=== PATIENT | female | born 1955 | race Hispanic/Latino ===

== ENCOUNTER 2017-06-25 15:02 | Inpatient (IN) | payer BC ==
[2017-06-25 15:12] VITALS: BMI 24.5
[2017-06-25] MEDS ORDERED: Sodium Chloride 0.9% 1,000 ML IV STA (15:39)
--- NOTE | 2017-06-25 15:45 | ED PDOC ---
Arrival/HPI - General Chief Complaint: Weakness/Neurological Deficit Time Seen by Provider: 06/25/17 15:36 - History of Present Illness Narrative History of Present Illness (Text): 61 y/o F c PMHx CVAs, migraine headaches, chronic back pain/herniated discs p/w general weakness, headache, nausea, loss of appetite since yesterday. This is last time well. She also reports L leg swelling and itchy skin with open wounds due to scratching x 1 month. Headache is bilateral, radiating down back of head , pounding, similar to previous migraine headaches but also similar to previous CVAs. Patient had regular scheduled appointment with PMD Marla today and was found to be hypertensive and generally unwell and instructed to come to ED for further evaluation. Denies fever, dyspnea, cough, dysuria. Past Medical History - Cardiac Hx Hypertension: Yes - Pulmonary Hx Tuberculosis: No - Neurological HX Cerebrovascular Accident: Yes Hx Seizures: No - HEENT Hx HEENT Disorder: No - Renal Hx Renal Disorder: No - Endocrine/Metabolic Hx Endocrine Disorders: No - Hematological/Oncological Hx Blood Disorders: No - Integumentary Hx Dermatological Disorder: No Hx Psoriasis: Yes (Psoriatic arthiritis ) - Musculoskeletal/Rheumatological Hx Arthritis: Yes Hx Herniated Disk: Yes - Gastrointestinal Hx Gastrointestinal Disorders: No - Genitourinary/Gynecological Hx Genitourinary Disorders: No Hx Sexually Transmitted Diseases: No - Psychiatric Hx Anxiety: Yes Hx Substance Use: No - Surgical History Hx Hysterectomy: Yes (2/2 fibroids) - Anesthesia Hx Anesthesia: Yes Hx Anesthesia Reactions: No - Suicidal Assessment Feels Threatened In Home Enviroment: No Family/Social History Family/Social History: No Known Family HX Smoking Status: Former Smoker Hx Alcohol Use: No Hx Substance Use: No Hx Substance Use Treatment: Yes (opiate dependence) Allergies/Home Meds Allergies/Adverse Reactions: Allergies Sulfa (Sulfonamide Antibiotics) Allergy (Verified 06/25/17 15:13) ANAPHYLAXIS Home Medications: Home Meds Medication Instructions Recorded Confirmed Acetaminophen/Butalbital/Caf 1 tab PO Q4 06/25/17 06/25/17 [Fioricet] Acyclovir 5% [Zovirax] 1 appl TP Q3 06/25/17 06/25/17 Albuterol Sulfate [Albuterol Hfa] 2 puff IH Q4 06/25/17 06/25/17 Aspirin [Aspirin Chewable] 81 mg PO DAILY 06/25/17 06/25/17 Carisoprodol [Soma] 350 mg PO TID 06/25/17 06/25/17 HYDROmorphone [Dilaudid] 8 mg PO Q6 06/25/17 06/25/17 Mometasone 0.1% [Elocon 0.1%] 1 appl TP DAILY 06/25/17 06/25/17 Morphine Sulfate [Ms Contin] 15 mg PO Q12 06/25/17 06/25/17 Mupirocin 2% Cream [Bactroban 1 applic EXT TID 06/25/17 06/25/17 Cream] Propranolol HCl 10 mg PO BID 06/25/17 06/25/17 Topiramate [Topamax] 50 mg PO BID 06/25/17 06/25/17 Umeclidinium Brm/Vilanterol Tr 1 each IH DAILY 06/25/17 06/25/17 [Anoro Ellipta 62.5-25 Mcg INH] Verapamil [Verapamil HCl] 40 mg PO TID 06/25/17 06/25/17 diaZEpam [Valium] 5 mg PO BID 06/25/17 06/25/17 Review of Systems - Physician Review All systems were reviewed & negative as marked: Yes - Review of Systems Constitutional: absent: Fevers Respiratory: absent: SOB Physical Exam - Physical Exam Narrative Physical Exam (Text): Constitutional: No acute distress. Head: Normocephalic. Atraumatic. Eyes: PERRL. EOMI. ENT: Moist mucous membranes. Neck: Supple. No nuchal rigidity. Cardiovascular: Regular rate. Chest: No tenderness. Respiratory: Clear to auscultation bilaterally. GI: Soft. Nontender. Nondistended. Back: No CVA tenderness. Musculoskeletal: L lower leg swelling with excoriations to anterior barrientos without discharge. Skin: As above. Neurologic: Alert, no focal deficit. Oriented x 3. No facial droop. CN II to XII intact. Moves all extremities. Sensation to light touch intact bilaterally. Vital Signs Temp Pulse Resp BP Pulse Ox 06/25/17 15:13 98.4 F 60 18 188/96 H 99 06/25/17 15:11 98.4 F 60 18 188/96 H 99 Medical Decision Making ED Course and Treatment: Home dose dilaudid PO for pain. Zofran for nausea. IVF. Check Head CT due to history of CVAs and questionable history of aneurysm. Check labs, UA, doppler to rule out DVT. EKG Sinus rhythm, 65 bpm, no ST elevations or T wave inversions. CXR no acute disease. MPRESSION: No evidence of acute intracranial hemorrhage. Small foci of hypodensity/ encephalomalacia noted at the right parasagittal frontal lobe and right occipital lobe may represent old infarction. CT shows old infarction, no previous for comparison. Will admit for further evaluation of neurological findings. - Lab Interpretations Lab Results: 06/25/17 16:13 06/25/17 16:13 Lab Results 06/25/17 16:13: Sodium 130 L, Potassium 5.2 H, Chloride 95 L, Carbon Dioxide 29 , Anion Gap 11, BUN 6 L, Creatinine 0.8, Est GFR ( Amer) > 60, Est GFR ( Non-Af Amer) > 60, Random Glucose 111 H, Calcium 9.7, Total Bilirubin 0.5, AST 29, ALT 35, Alkaline Phosphatase 115, Total Protein 6.9, Albumin 4.3, Globulin 2.6, Albumin/Globulin Ratio 1.7, Lipase 93 06/25/17 16:13: PT 11.4, INR 1.04, APTT 30.9 06/25/17 16:13: WBC 7.7, RBC 3.61, Hgb 11.4 L, Hct 33.3 L, MCV 92.2, MCH 31.6, MCHC 34.2, RDW 12.8, Plt Count 260, MPV 9.4, Gran % 67.8, Lymph % (Auto) 20.9 L , Cannon % (Auto) 7.0 H, Eos % (Auto) 4.0, Baso % (Auto) 0.3, Gran # 5.25, Lymph # 1.6, Cannon # 0.5, Eos # 0.3, Baso # 0.02 - RAD Interpretation Radiology Orders: 06/25/17 15:38 CHEST PORTABLE [RAD] Stat 06/25/17 15:39 HEAD W/O CONTRAST [CT] Stat DUPLEX LOWER EXTRM VEIN BILAT [US] Stat - Medication Orders Current Medication Orders: Discontinued Medications Aspirin (Aspirin) 325 mg PO STAT STA Stop: 06/25/17 18:58 Hydromorphone HCl (Dilaudid) 8 mg PO ONCE STA Stop: 06/25/17 15:53 Last Admin: 06/25/17 16:12 Dose: 8 mg MAR Pain Assessment Document 06/25/17 16:12 HI (Rec: 06/25/17 16:13 HI [id number]) Pain Reassessment Is this a pain reassessment? No Sleep Is patient sleeping during reassessment? No Presence of Pain Presence of Pain Yes Sodium Chloride (Sodium Chloride 0.9%) 1,000 mls @ 999 mls/hr IV .Q1H1M STA Stop: 06/25/17 16:39 Last Admin: 06/25/17 16:13 Dose: 999 mls/hr eMAR Start Stop Document 06/25/17 16:13 HI (Rec: 06/25/17 16:13 HI [id number]) Intravenous Solution Start Date 06/25/17 Start Time 16:13 Ondansetron HCl (Zofran Inj) 8 mg IVP STAT STA Stop: 06/25/17 15:40 Last Admin: 06/25/17 16:13 Dose: 8 mg IVP Administration Document 06/25/17 16:13 HI (Rec: 06/25/17 16:13 [id number]) Charges for Administration # of IVP Administrations 1 NIHSS Scale (Hepler) Time Performed: 15:52 - How Severe is the Stoke Baseline Level of Consciousness: 0=Alert LOC to Questions: 0=Both comments correct LOC to commands: 0=Obeys both correctly Best Gaze: 0=Normal Visual: 0=No visual loss Facial: 0=Normal Motor Arm - Left: 0=No drift Motor Arm - Right: 0=No drift Motor Leg - Left: 0=No drift Motor Leg - Right: 0=No drift Limb Ataxia: 0=Absent Sensory: 0=Normal Best Language: 0=No aphasia Dysarthia: 0=Normal articulation Extinction & Inattention (Neglect): 0=Normal, no object Score: 0 Risk Level: No Stroke Risk Disposition/Present on Arrival - Present on Arrival Any Indicators Present on Arrival: No History of DVT/PE: No History of Uncontrolled Diabetes: No Urinary Catheter: No History of Decub. Ulcer: No History Surgical Site Infection Following: None - Disposition Have Diagnosis and Disposition been Completed?: Yes Diagnosis: Cerebral infarction Disposition: HOSPITALIZED Disposition Time: 17:53 Patient Plan: Observation, Telemetry Condition: FAIR Referrals: Sp Gutiérrez MD [Primary Care Provider] - Follow up with primary Forms: [place] (Micronesian)
--- NOTE | 2017-06-25 16:00 | RAD ---
HISTORY: weakness COMPARISON: No prior. FINDINGS: LUNGS: No active pulmonary disease. PLEURA: No significant pleural effusion identified, no pneumothorax apparent. CARDIOVASCULAR: Normal. OSSEOUS STRUCTURES: No significant abnormalities. VISUALIZED UPPER ABDOMEN: Normal. OTHER FINDINGS: None. IMPRESSION: No active disease.
[2017-06-25 16:21] LABS: BASO # 0.02 K/mm3 (0.0-2.0); BASO % 0.3 % (0.0-3.0); EOS # 0.3 (0.0-0.7); GRAN # 5.25 (1.4-6.5); GRAN % 67.8 % (50.0-68.0); HEMATOCRIT 33.3 % (36.0-48.0); LYMPH # 1.6 (1.2-3.4); LYMPH % 20.9 % (22.0-35.0); MEAN CELL VOLUME 92.2 fl (80.0-105.0); MEAN CORPUSCULAR HEMOGLOBIN 31.6 pg (25.0-35.0); MEAN CORPUSCULAR HGB CONC 34.2 g/dl (31.0-37.0); MEAN PLATELET VOLUME 9.4 fl (7.0-11.0); MONO # 0.5 (0.1-0.6); RED CELL DISTRIBUTION WIDTH 12.8 % (11.5-14.5); WHITE BLOOD COUNT 7.7 10^3/ul (4.5-11.0)
[2017-06-25 16:36] LABS: ALB/GLOB RATIO 1.7 (1.1-1.8); ALKALINE PHOSPHATASE 115 U/L (38-126); ALT/SGPT 35 U/L (7-56); AST/SGOT 29 U/L (14-36); BILIRUBIN,TOTAL 0.5 mg/dL (0.2-1.3); BLOOD UREA NITROGEN 6 mg/dL (7-21); CALCIUM 9.7 mg/dL (8.4-10.5); CARBON DIOXIDE 29 mmol/L (21-33); CHLORIDE 95 mmol/L (98-107); GFR AFRICAN-AMERICAN > 60; GLUCOSE,RANDOM 111 mg/dL (70-110); LIPASE 93 U/L (23-300); POTASSIUM 5.2 mmol/L (3.6-5.0); SODIUM 130 mmol/L (132-148); TOTAL PROTEIN 6.9 g/dL (5.8-8.3)
[2017-06-25 16:39] LABS: INR 1.04 (0.93-1.08)
[2017-06-25 16:40] LABS: PARTIAL THROMBOPLASTIN TIME 30.9 Seconds (25.1-36.5)
--- NOTE | 2017-06-25 17:55 | CT ---
PROCEDURE: CT HEAD WITHOUT CONTRAST. HISTORY: general weakness, headache, nausea COMPARISON: None available. TECHNIQUE: Axial computed tomography images were obtained through the head/brain without intravenous contrast. Radiation dose: Total exam DLP = 1505.17 mGy-cm. This CT exam was performed using one or more of the following dose reduction techniques: Automated exposure control, adjustment of the mA and/or kV according to patient size, and/or use of iterative reconstruction technique. FINDINGS: HEMORRHAGE: No intracranial hemorrhage. BRAIN: There are foci of hypodensity/ encephalomalacia noted at the right superior frontal parasagittal region image 48 and right occipital lobe image 32 may represent old infarction. No atrophy or chronic microvascular ischemic changes. VENTRICLES: Unremarkable. No hydrocephalus. CALVARIUM: Unremarkable. PARANASAL SINUSES: [id number] ethmoid sinuses mucosal thickening. MASTOID AIR CELLS: Unremarkable as visualized. No inflammatory changes. OTHER FINDINGS: None. IMPRESSION: No evidence of acute intracranial hemorrhage. Small foci of hypodensity/ encephalomalacia noted at the right parasagittal frontal lobe and right occipital lobe may represent old infarction.
--- NOTE | 2017-06-25 18:37 | US ---
HISTORY: Leg pain and swelling. Evaluate for DVT PHYSICIAN(S): Alexis Lane MD. TECHNIQUE: Duplex sonography and color-flow Doppler with graded compression were used to evaluate the deep venous systems of both lower extremities. FINDINGS: The visualized deep venous systems of both lower extremities are sonographically normal and compressible. Normal wave forms and augmentation are seen. There is no sonographic evidence for deep venous thrombosis in the visualized segments of both lower extremities. IMPRESSION: No sonographic evidence for deep venous thrombosis in the visualized segments of both lower extremities.
[2017-06-25 19:18] LABS: PH,URINE 6.5 (4.7-8.0); URINE BILIRUBIN NEGATIVE (NEGATIVE); URINE BLOOD NEGATIVE (NEGATIVE); URINE GLUCOSE (UA) NEGATIVE (NEGATIVE); URINE KETONE NEGATIVE (NEGATIVE); URINE LEUKOCYTE ESTERASE NEGATIVE Leu/uL (NEGATIVE); URINE PROTEIN NEGATIVE mg/dL (<30 mg/dL); URINE UROBILINOGEN 0.2 E.U./dL (<1 E.U./dL)
[2017-06-25 19:21] LABS: URINE APPEARANCE CLEAR (CLEAR); URINE COLOR YELLOW (YELLOW)
[2017-06-25] MEDS ORDERED: Albuterol-Ipratrop 3 mg / 0.5 (3 ml) UD IH PRN (20:57)
[2017-06-25] MEDS: Morphine 15 mg SR Tab PO SCH (21:36)
--- NOTE | 2017-06-25 21:50 | CP.PCM.HP ---
History of Present Illness - History of Present Illness History of Present Illness: Ms. Elizondo is a 61 yo F with PMH CVA x7 requiring several months of rehab, HTN, migraines, psoriatic arthritis, chronic back pain w/ cervical and lumbar stenoses, COPD, anxiety and tobacco use who presented with LE (L>R) swelling, redness, and generalized itchiness x1 week, a headache and generalized weakness and pain. the patient states that she has psioratic arthritis and the generalized pain is similar to her pain. The headaches are similar to her migraines, and she also complains of photophobia. the itching is familiar to her as she has psoriasis and it usually flares around winter time. She went to visit Dr. Gutiérrez in office this morning and was found to be hypertensive (SBP 180's) and was told to come in to ED for workup. She denies chest pain, shortness of breath, wheezing, changes in vision/hearing, ringing in ears, abdominal pain, n/v/d/constipation, fevers/chills. 12-pt ROS was reviewed and is otherwise unremarkable. In ED, ASA, Dilaudid and Zofran were given. NS 1L bolus was given. BP improved. PMD: Dr. Gutiérrez Pulm: pt cannot recall name; managed COPD PMH: as above PSH: hysterectomy 2/2 fibroids Meds: Ellipta, Elocon, Soma, Zovirax, Valium, Albuterol, ASA, Bactroban, Fioricet, Propranolol, Topamax, Verapamil, Dilaudid, Morphine Allergies: Sulfa Present on Admission - Present on Admission Any Indicators Present on Admission: No History of DVT/PE: No History of Uncontrolled Diabetes: No Urinary Catheter: No Decubitus Ulcer Present: No Review of Systems - Review of Systems All systems: reviewed and no additional remarkable complaints except (as per HPI ) Past Patient History - Past Medical History & Family History Past Medical History?: Yes - Past Social History Smoking Status: Former Smoker Alcohol: None Drugs: Denies - CARDIAC Hx Hypertension: Yes - PULMONARY Hx Chronic Obstructive Pulmonary Disease (COPD): Yes Hx Tuberculosis: No - NEUROLOGICAL HX Cerebrovascular Accident: Yes Hx Migraine: Yes Hx Seizures: No - HEENT Hx HEENT Problems: No - RENAL Hx Chronic Kidney Disease: No - ENDOCRINE/METABOLIC Hx Endocrine Disorders: No - HEMATOLOGICAL/ONCOLOGICAL Hx Blood Disorders: No - INTEGUMENTARY Hx Dermatological Problems: No Hx Psoriasis: Yes (Psoriatic arthiritis ) - MUSCULOSKELETAL/RHEUMATOLOGICAL Hx Arthritis: Yes Hx Back Pain: Yes Hx Herniated Disk: Yes Hx Spinal Stenosis: Yes (cervical and lumbar) - GASTROINTESTINAL Hx Gastrointestinal Disorders: No - GENITOURINARY/GYNECOLOGICAL Hx Genitourinary Disorders: No Hx Sexually Transmitted Disorders: No - PSYCHIATRIC Hx Anxiety: Yes Hx Substance Use: No - SURGICAL HISTORY Hx Hysterectomy: Yes (2/2 fibroids) - ANESTHESIA Hx Anesthesia: Yes Hx Anesthesia Reactions: No Meds Allergies/Adverse Reactions: Allergies Allergy/AdvReac Type Severity Reaction Status Date / Time Sulfa (Sulfonamide Allergy ANAPHYLAXIS Verified 06/25/17 21:50 Antibiotics) Physical Exam - Constitutional Appears: Well, Non-toxic, No Acute Distress - Head Exam Head Exam: ATRAUMATIC, NORMAL INSPECTION, NORMOCEPHALIC - Eye Exam Eye Exam: EOMI, Normal appearance, Nystagmus, PERRL Pupil Exam: NORMAL ACCOMODATION - ENT Exam ENT Exam: Mucous Membranes Moist, Normal Exam - Neck Exam Neck exam: Positive for: Normal Inspection - Respiratory Exam Respiratory Exam: Clear to Auscultation Bilateral, NORMAL BREATHING PATTERN. absent: Rales, Rhonchi, Wheezes - Cardiovascular Exam Cardiovascular Exam: RRR, +S1, +S2, Systolic Murmur - GI/Abdominal Exam GI & Abdominal Exam: Normal Bowel Sounds, Soft. absent: Distended, Tenderness - Extremities Exam Extremities exam: Positive for: calf tenderness, pedal pulses present. Negative for: full ROM (limited due to pain), joint swelling, pedal edema Additional comments: multiple localized abrasions likely 2/2 scratching - Back Exam Back exam: NORMAL INSPECTION - Neurological Exam Neurological exam: Alert, CN II-XII Intact, Oriented x3 - Expanded Neurological Exam Expanded Patient oriented to: person, place, time Speech: Fluid Speech Cranial nerves: EOM's Intact: Normal, Facial Palsey w/Forehead Movement: Normal , Facial Palsey w/o Forehead Movement: Normal, Facial Sensation: Normal, Nystagmus: Abnormal Left, Abnormal Right, Tongue Deviation: Normal Cerebellar Function: Finger to Nose: Normal Upper motor neuron: Babinski Sign: Normal Sensory exam: Lower Extremity Light Touch: Normal, Upper Extremity Light Touch: Normal Neuro motor strength exam: Left Upper Extremity: 5, Right Upper Extremity: 5, Left Lower Extremity: 5, Right Lower Extremity: 5 - Psychiatric Exam Psychiatric exam: Normal Affect, Normal Mood - Skin Skin Exam: Abrasion (L anterior barrientos), Normal Color, Warm Results - Vital Signs Recent Vital Signs: Last Vital Signs Temp 98.4 F 06/25/17 15:13 Pulse 72 06/25/17 19:50 Resp 14 06/25/17 19:50 BP 149/91 H 06/25/17 19:50 Pulse Ox 96 06/25/17 19:50 - Labs Result Diagrams: 06/25/17 16:13 06/25/17 16:13 Assessment & Plan - Assessment and Plan (Free Text) Assessment: 61 yo F with PMH CVA x7 requiring several months of rehab, HTN, migraines, psoriatic arthritis, chronic back pain w/ cervical and lumbar stenoses, COPD, anxiety and tobacco use who presented with HTN, LE (L>R) itchiness x1 week, a headache and generalized weakness and pain likely 2/2 psoriatic arthritis flare up vs TIA Plan: Generalized weakness r/o TIA vs psoriatic arthritis flare up - CT Head showed no acute intracranial hemorrhage. small foci of hypodensity likely old infarcts - neurochecks - PT/OT eval - Neuro consulted, recs appreciated - cont ASA - cont Carisoprodol LE swelling and redness likely 2/2 psoriasis flare up vs DVT, unlikely cellulitis - LE doppler negative for DVT - heparin for DVT ppx - Benadryl 25mg IV PRN - Dilaudid 8mg (home dose) Q6H PRN, Morphine ER 15mg Q12H - Bactroban cream HTN - cont Propranolol, Topamax and Verapamil (home meds) - Vital Signs Q4H Hx migraines - Fioricet Hx COPD - Duoneb PRN Pepcid/Heparin HHD Patient was seen and examined, and discussed in detail with attending, Dr. Marla Yeung PGY1 - Date & Time Date: 06/25/17 Time: 20:15
[2017-06-25] MEDS ORDERED: Influenza Vaccine 60 mcg/0.5 mL SYR (4YR UP) IM ONE (23:07)
[2017-06-25] MEDS ORDERED: Pneumococcal 23-Valent Vaccine IM ONE (23:07)
[2017-06-26 06:26] LABS: HEMATOCRIT 31.7 % (36.0-48.0); MEAN CELL VOLUME 92.4 fl (80.0-105.0); MEAN CORPUSCULAR HEMOGLOBIN 31.5 pg (25.0-35.0); MEAN CORPUSCULAR HGB CONC 34.1 g/dl (31.0-37.0); MEAN PLATELET VOLUME 9.6 fl (7.0-11.0); RED CELL DISTRIBUTION WIDTH 13.2 % (11.5-14.5); WHITE BLOOD COUNT 4.5 10^3/ul (4.5-11.0)
[2017-06-26 06:55] LABS: ALB/GLOB RATIO 1.4 (1.1-1.8); ALKALINE PHOSPHATASE 102 U/L (38-126); ALT/SGPT 26 U/L (7-56); AST/SGOT 26 U/L (14-36); BILIRUBIN,TOTAL 0.4 mg/dL (0.2-1.3); BLOOD UREA NITROGEN 5 mg/dL (7-21); CALCIUM 9.1 mg/dL (8.4-10.5); CARBON DIOXIDE 26 mmol/L (21-33); CHLORIDE 105 mmol/L (98-107); GFR AFRICAN-AMERICAN > 60; GLUCOSE,RANDOM 98 mg/dL (70-110); POTASSIUM 3.8 mmol/L (3.6-5.0); SODIUM 135 mmol/L (132-148); TOTAL PROTEIN 5.9 g/dL (5.8-8.3)
--- NOTE | 2017-06-26 08:07 | CARD ---
APPROVED REPORT EKG Measurement Heart [id number] <Conclusion> Sinus rhythm with 1st degree AV block Possible Left atrial enlargement LVH by voltage
[2017-06-26] MEDS: DiphenhydrAMINE 50 mg/ml Inj IVP PRN ×3 (09:43→23:45)
[2017-06-26] MEDS: Morphine 15 mg SR Tab PO SCH ×2 (09:46→23:16)
[2017-06-26] MEDS: CARISOPRODOL 350 MG PO SCH ×3 (10:07→17:27)
[2017-06-26 12:23] LABS: CHOLESTEROL 176 mg/dL (130-200)
[2017-06-26] MEDS: cefTRIAXone 1 gm 1 GM/100 ML BAG IVPB SCH (12:41)
--- NOTE | 2017-06-26 13:14 | CP.PCM.CON ---
<Sandy Dupont - Last Filed: 06/26/17 22:47> History of Present Illness - History of Present Illness History of Present Illness: PGY-2 Neurology consult note for Dr. Davis's service 61 yo Female with PMH of CVA x7, HTN, migraines, psoriatic arthritis, chronic back pain with cervical and lumbar stenoses, COPD, anxiety and former tobacco use who presented with left lower extremity weakness, headache and generalized weakness. The patient states that that headache is bilateral, radiating down to her neck. She states it similar to her previous migraines. She also reports increasing weakness especially in her lower left leg, per patient yesterday she was able to walk with out difficulty but in the evening she began having trouble standing. She states over the past fe weeks her blood pressure has been poorly controlled. Yesterday she went to her primary care physician's office and was advised to come to the hospital after finding her BP to he elevated. She reports chronic back pain. She denies chest pain, shortness of breath, wheezing, changes in vision/hearing, ringing in ears, abdominal pain, changes in vision, n/v/d/constipation, fevers/chills. PMH: CVA x7, HTN, migraines, psoriatic arthritis, chronic back pain with cervical and lumbar stenoses, COPD, anxiety PSH: hysterectomy 2/2 fibroids social history: former smoker, quit many years ago, denies alcohol use and illicit drug use home Meds: Ellipta, Elocon, Soma, Zovirax, Valium, Albuterol, ASA, Bactroban, Fioricet, Propranolol, Topamax, Verapamil, Dilaudid, Morphine Allergies: Sulfa Review of Systems - Review of Systems All systems: reviewed and no additional remarkable complaints except (as stated in HPI) Past Patient History - Past Medical History & Family History Past Medical History?: Yes - Past Social History Smoking Status: Former Smoker - CARDIAC Hx Cardiac Disorders: Yes Hx Hypertension: Yes - PULMONARY Hx Respiratory Disorders: Yes (SMOKED CIGARETTES QUIT) Hx Chronic Obstructive Pulmonary Disease (COPD): Yes Hx Tuberculosis: No - NEUROLOGICAL Hx Neurological Disorder: Yes HX Cerebrovascular Accident: Yes Hx Migraine: Yes Hx Seizures: No - HEENT Hx HEENT Problems: No - RENAL Hx Chronic Kidney Disease: No - ENDOCRINE/METABOLIC Hx Endocrine Disorders: No - HEMATOLOGICAL/ONCOLOGICAL Hx Blood Disorders: No - INTEGUMENTARY Hx Dermatological Problems: No Hx Psoriasis: Yes (Psoriatic arthiritis ) - MUSCULOSKELETAL/RHEUMATOLOGICAL Hx Arthritis: Yes Hx Back Pain: Yes Hx Falls: Yes Hx Herniated Disk: Yes Hx Spinal Stenosis: Yes (cervical and lumbar) - GASTROINTESTINAL Hx Gastrointestinal Disorders: No - GENITOURINARY/GYNECOLOGICAL Hx Genitourinary Disorders: No Hx Sexually Transmitted Disorders: No - PSYCHIATRIC Hx Anxiety: Yes Hx Substance Use: Yes (OPIATE DEPENDANCE) - SURGICAL HISTORY Hx Hysterectomy: Yes (2/2 fibroids) - ANESTHESIA Hx Anesthesia: Yes Hx Anesthesia Reactions: No Meds Allergies/Adverse Reactions: Allergies Allergy/AdvReac Type Severity Reaction Status Date / Time Sulfa (Sulfonamide Allergy ANAPHYLAXIS Verified 06/25/17 21:50 Antibiotics) - Medications Medications: Current Medications Acetaminophen/Butalbital/Caffeine (Fioricet) 1 tab PO Q4 PRN PRN Reason: Headache Albuterol/Ipratropium (Duoneb 3 Mg/0.5 Mg (3 Ml) Ud) 3 ml IH Q2H PRN PRN Reason: Shortness of Breath Aspirin (Aspirin Chewable) 81 mg PO DAILY [facility] Last Admin: 06/26/17 09:44 Dose: 81 mg Diazepam (Valium) 5 mg PO BID ANDREW PRN Reason: Protocol Last Admin: 06/26/17 09:47 Dose: 5 mg Diphenhydramine HCl (Benadryl) 25 mg IVP Q4H PRN PRN Reason: Allergy symptoms Last Admin: 06/26/17 09:43 Dose: 25 mg Docusate Sodium (Colace) 100 mg PO BID [facility] Last Admin: 06/26/17 09:47 Dose: 100 mg Famotidine (Pepcid) 40 mg PO HS [facility] Last Admin: 06/25/17 22:07 Dose: 40 mg Heparin Sodium (Porcine) (Heparin) 5,000 units SC Q12 ANDREW PRN Reason: Protocol Last Admin: 06/26/17 11:08 Dose: 5,000 units Hydromorphone HCl (Dilaudid) 8 mg PO Q6 PRN PRN Reason: Pain, severe (8-10) Last Admin: 06/26/17 05:45 Dose: 8 mg Ceftriaxone Sodium (Rocephin 1 Gram Ivpb) 1 gm in 100 mls @ 100 mls/hr IVPB DAILY [facility] PRN Reason: Protocol Last Admin: 06/26/17 12:41 Dose: 100 mls/hr Morphine Sulfate (Morphine Extended Release Tab) 15 mg PO Q12 [facility] Last Admin: 06/26/17 09:46 Dose: 15 mg Mupirocin (Bactroban Ointment) 0 gm TOP TID [facility] Last Admin: 06/26/17 10:39 Dose: 1 applic Carisoprodol [Soma] (350 Mg (Home Med)) 350 mg PO TID [facility] Last Admin: 06/26/17 10:07 Dose: Not Given Propranolol HCl (Inderal) 10 mg PO BID [facility] Last Admin: 06/26/17 09:45 Dose: 10 mg Topiramate (Topamax) 50 mg PO BID [facility] PRN Reason: Protocol Last Admin: 06/26/17 10:40 Dose: 50 mg Verapamil HCl (Calan Tab) 40 mg PO TID [facility] Last Admin: 06/26/17 09:44 Dose: 40 mg Physical Exam - Constitutional Appears: Well, No Acute Distress - Head Exam Head Exam: ATRAUMATIC, NORMAL INSPECTION, NORMOCEPHALIC - Eye Exam Eye Exam: EOMI, Normal appearance, PERRL - ENT Exam ENT Exam: Mucous Membranes Moist - Respiratory Exam Respiratory Exam: Clear to Auscultation Bilateral, NORMAL BREATHING PATTERN. absent: Rhonchi, Wheezes, Respiratory Distress, Stridor - Cardiovascular Exam Cardiovascular Exam: REGULAR RHYTHM, +S1, +S2. absent: Tachycardia, Systolic Murmur - GI/Abdominal Exam GI & Abdominal Exam: Normal Bowel Sounds, Soft. absent: Distended, Firm, Tenderness - Extremities Exam Extremities exam: Positive for: tenderness - Neurological Exam Neurological exam: Alert, CN II-XII Intact, Oriented x3 - Expanded Neurological Exam Expanded Patient oriented to: person, place, time Cranial nerves: EOM's Intact: Normal Cerebellar Function: Finger to Nose: Normal Neuro motor strength exam: Left Upper Extremity: 5, Right Upper Extremity: 5, Left Lower Extremity: 3, Right Lower Extremity: 5 - Skin Skin Exam: Dry Results - Vital Signs Recent Vital Signs: Last Vital Signs Temp 98.9 F 06/26/17 06:00 Pulse 73 06/26/17 10:00 Resp 20 06/26/17 06:00 BP 118/90 06/26/17 09:45 Pulse Ox 96 06/26/17 06:00 - Labs Result Diagrams: 06/26/17 06:00 06/26/17 06:00 Labs: Laboratory Results - last 24 hr 06/26/17 06/26/17 06/26/17 06:00 06:00 12:00 WBC 4.5 D RBC 3.43 L Hgb 10.8 L Hct 31.7 L MCV 92.4 MCH 31.5 MCHC 34.1 RDW 13.2 Plt Count 254 MPV 9.6 Sodium 135 Potassium 3.8 Chloride 105 Carbon Dioxide 26 Anion Gap 9 L BUN 5 L Creatinine 0.8 Est GFR ( Amer) > 60 Est GFR (Non-Af Amer) > 60 Random Glucose 98 Calcium 9.1 Total Bilirubin 0.4 AST 26 ALT 26 Alkaline Phosphatase 102 Total Protein 5.9 Albumin 3.5 Globulin 2.4 Albumin/Globulin Ratio 1.4 Triglycerides 86 Cholesterol 176 LDL Cholesterol Direct 108 HDL Cholesterol 57 Assessment & Plan - Assessment and Plan (Free Text) Assessment: 61 yo Female with PMH of CVA x7, HTN, migraines, psoriatic arthritis, chronic back pain with cervical and lumbar stenoses, COPD, anxiety and former tobacco use who presented with left lower extremity weakness, headache most likely due to HTN urgency. 1. HTN urgency causing diffuse headache and neurological deficiency 2. h/o CVA with left leg weakness 3. chronic back pain with cervical and lumbar stenosis 4. anxiety 5. COPD - CT head showed no acute intracranial hemorrhage. small foci of hypodensity likely old infarcts - MRI of the brain ordered - left sided weakness appears to be chronic, consistent with location of previous cva - control BP - PT/OT evaluation case reviewed and discussed with attending, Dr. Davis <Andrew Davis - Last Filed: 06/27/17 06:00> Meds - Medications Medications: Current Medications Acetaminophen/Butalbital/Caffeine (Fioricet) 1 tab PO Q4 PRN PRN Reason: Headache Last Admin: 06/26/17 14:18 Dose: 1 tab Albuterol/Ipratropium (Duoneb 3 Mg/0.5 Mg (3 Ml) Ud) 3 ml IH Q2H PRN PRN Reason: Shortness of Breath Aspirin (Aspirin Chewable) 81 mg PO DAILY [facility] Last Admin: 06/26/17 09:44 Dose: 81 mg Diazepam (Valium) 5 mg PO BID ANDREW PRN Reason: Protocol Last Admin: 06/26/17 18:09 Dose: 5 mg Diphenhydramine HCl (Benadryl) 25 mg IVP Q4H PRN PRN Reason: Allergy symptoms Last Admin: 06/26/17 23:45 Dose: 25 mg Docusate Sodium (Colace) 100 mg PO BID [facility] Last Admin: 06/26/17 18:09 Dose: 100 mg Famotidine (Pepcid) 40 mg PO HS [facility] Last Admin: 06/26/17 23:16 Dose: 40 mg Heparin Sodium (Porcine) (Heparin) 5,000 units SC Q12 [facility] PRN Reason: Protocol Last Admin: 06/26/17 23:15 Dose: 5,000 units Hydromorphone HCl (Dilaudid) 8 mg PO Q6 PRN PRN Reason: Pain, severe (8-10) Last Admin: 06/27/17 03:40 Dose: 8 mg Ceftriaxone Sodium (Rocephin 1 Gram Ivpb) 1 gm in 100 mls @ 100 mls/hr IVPB DAILY [facility] PRN Reason: Protocol Last Admin: 06/26/17 12:41 Dose: 100 mls/hr Morphine Sulfate (Morphine Extended Release Tab) 15 mg PO Q12 [facility] Last Admin: 06/26/17 23:16 Dose: 15 mg Mupirocin (Bactroban Ointment) 0 gm TOP TID [facility] Last Admin: 06/26/17 18:10 Dose: 1 applic Carisoprodol [Soma] (350 Mg (Home Med)) 350 mg PO TID [facility] Last Admin: 06/26/17 17:27 Dose: Not Given Propranolol HCl (Inderal) 10 mg PO BID [facility] Last Admin: 06/26/17 18:08 Dose: 10 mg Topiramate (Topamax) 50 mg PO BID [facility] PRN Reason: Protocol Last Admin: 06/26/17 18:08 Dose: 50 mg Verapamil HCl (Calan Tab) 40 mg PO TID [facility] Last Admin: 06/26/17 18:08 Dose: 40 mg Results - Vital Signs Recent Vital Signs: Last Vital Signs Temp 97.9 F 06/27/17 00:01 Pulse 72 06/27/17 02:00 Resp 21 06/26/17 18:00 BP 136/92 H 06/27/17 00:01 Pulse Ox 96 06/26/17 06:00 - Labs Result Diagrams: 06/26/17 06:00 06/26/17 06:00 Attending/Attestation - Attestation I have personally seen and examined this patient.: Yes I have fully participated in the care of the patient.: Yes I have reviewed all pertinent clinical information: Yes
--- NOTE | 2017-06-26 14:05 | CP.PCM.PN ---
Subjective - Date & Time of Evaluation Date of Evaluation: 06/26/17 Time of Evaluation: 09:00 - Subjective Subjective: Patient seen and evaluated at bedside. Patient sent over from PMD yesterday for elevated BP, headache, pruritus, and concerning neurological symptoms. Patient today reporting continued pruritus, headache, and generalized weakness. Patient denies chest pain, shortness of breath, abdominal pain, vomiting, fever, chills. Patient endorses poor appetite. Objective - Vital Signs/Intake and Output Vital Signs (last 24 hours): Temp Pulse Resp BP Pulse Ox 98.9 F 73 20 118/90 96 06/26/17 06:00 06/26/17 10:00 06/26/17 06:00 06/26/17 09:45 06/26/17 06:00 Intake and Output: 06/26/17 06/26/17 06:59 18:59 Intake Total 120 Output Total 1000 Balance -880 - Medications Medications: Current Medications Acetaminophen/Butalbital/Caffeine (Fioricet) 1 tab PO Q4 PRN PRN Reason: Headache Albuterol/Ipratropium (Duoneb 3 Mg/0.5 Mg (3 Ml) Ud) 3 ml IH Q2H PRN PRN Reason: Shortness of Breath Aspirin (Aspirin Chewable) 81 mg PO DAILY [facility] Last Admin: 06/26/17 09:44 Dose: 81 mg Diazepam (Valium) 5 mg PO BID ANDREW PRN Reason: Protocol Last Admin: 06/26/17 09:47 Dose: 5 mg Diphenhydramine HCl (Benadryl) 25 mg IVP Q4H PRN PRN Reason: Allergy symptoms Last Admin: 06/26/17 09:43 Dose: 25 mg Docusate Sodium (Colace) 100 mg PO BID [facility] Last Admin: 06/26/17 09:47 Dose: 100 mg Famotidine (Pepcid) 40 mg PO HS [facility] Last Admin: 06/25/17 22:07 Dose: 40 mg Heparin Sodium (Porcine) (Heparin) 5,000 units SC Q12 [facility]RE[facility] PRN Reason: Protocol Last Admin: 06/26/17 11:08 Dose: 5,000 units Hydromorphone HCl (Dilaudid) 8 mg PO Q6 PRN PRN Reason: Pain, severe (8-10) Last Admin: 06/26/17 05:45 Dose: 8 mg Ceftriaxone Sodium (Rocephin 1 Gram Ivpb) 1 gm in 100 mls @ 100 mls/hr IVPB DAILY [facility] PRN Reason: Protocol Last Admin: 06/26/17 12:41 Dose: 100 mls/hr Morphine Sulfate (Morphine Extended Release Tab) 15 mg PO Q12 [facility] Last Admin: 06/26/17 09:46 Dose: 15 mg Mupirocin (Bactroban Ointment) 0 gm TOP TID [facility] Last Admin: 06/26/17 10:39 Dose: 1 applic Carisoprodol [Soma] (350 Mg (Home Med)) 350 mg PO TID [facility] Last Admin: 06/26/17 10:07 Dose: Not Given Propranolol HCl (Inderal) 10 mg PO BID [facility] Last Admin: 06/26/17 09:45 Dose: 10 mg Topiramate (Topamax) 50 mg PO BID [facility] PRN Reason: Protocol Last Admin: 06/26/17 10:40 Dose: 50 mg Verapamil HCl (Calan Tab) 40 mg PO TID [facility] Last Admin: 06/26/17 09:44 Dose: 40 mg - Labs Labs: 06/26/17 06:00 06/26/17 06:00 PT 11.4 SECONDS (9.4-12.5) 06/25/17 16:13 INR 1.04 (0.93-1.08) 06/25/17 16:13 APTT 30.9 Seconds (25.1-36.5) 06/25/17 16:13 - Constitutional Appears: No Acute Distress - Head Exam Head Exam: ATRAUMATIC, NORMAL INSPECTION, NORMOCEPHALIC - Eye Exam Eye Exam: EOMI, PERRL - ENT Exam ENT Exam: Mucous Membranes Moist - Neck Exam Neck Exam: Full ROM - Respiratory Exam Respiratory Exam: Clear to Ausculation Bilateral, NORMAL BREATHING PATTERN. absent: Rales, Rhonchi, Wheezes - Cardiovascular Exam Cardiovascular Exam: REGULAR RHYTHM, +S1, +S2 - GI/Abdominal Exam GI & Abdominal Exam: Rigid, Soft, Normal Bowel Sounds. absent: Guarding, Tenderness, Mass - Extremities Exam Extremities Exam: Calf Tenderness. absent: Pedal Edema Additional comments: LLE showing nail scratching/rash lesions, no evidence of discharge or erythema surrounding rash - Neurological Exam Neurological Exam: Abnormal Gait (difficult with ambulation, poor coordination, uneasy on feet ), Alert, Awake, CN II-XII Intact, Oriented x3. absent: Normal Gait - Psychiatric Exam Psychiatric exam: Normal Affect, Normal Mood - Skin Skin Exam: Abrasion, Dry, Intact, Rash Assessment and Plan - Assessment and Plan (Free Text) Assessment: Patient is a 61 year old female with PMH of CVA x7 with extensive investigation and requiring several months of rehab, Migraines, HTN, psoriatic arthritis, chronic back pain with cervical and lumbar stenoses, COPD, anxiety and tobacco use who presented to [facility] from PMD for elevated B, LE pruritis x 1 week, headache and generalized weakness. Patient was admitted for generalized weakness 2/2 TIA vs. CVA vs. PRES Plan: 1. Generalized weakness, unsteady gait - Etiology: TIA vs. CVA vs. HTN urgency - CT Head on admission: No acute intracranial hemorrhage, small foci of hypodensity likely old infarcts - Neurology consulted, appreciate recs - Head MRI today f/u - Control of BP - PT/OT eval - Neurochecks Q4H - Continue ASA, carisoprodol 2. Lower extremity erythema/rash - Etiology: Psoriasis flare up vs. allergic reaction vs. cellulitis - LE doppler b/l negative for DVT - Benadryl 25mg IV PRN - Continue home pain management, Dilaudid 8mg Q6H PRN, Morphine ER 15mg BID - Bactroban cream - IV rocephin - Monitor clinical course 3. HTN - Stable here in hosital - Continue henri emeds, Propranolol, Topamax and Verapamil - Monitor 4. Hx of Migraines - Continue Fioricet DVT PPX: Heparin GI PPX: Pepcid Case and plan discussed with attending Dr. Gutiérrez
[2017-06-26] MEDS: Apap-Butalbital-Caffeine 325-50-40mg Tab PO PRN (14:18)
--- NOTE | 2017-06-26 18:31 | MRI ---
PROCEDURE: MRI BRAIN WITHOUT CONTRAST HISTORY: r/o stroke COMPARISON: None. TECHNIQUE: Multiplanar, multisequence MR images of the brain were obtained without intravenous contrast enhancement. FINDINGS: HEMORRHAGE: None DWI: No evidence of an acute or early subacute infarction. BRAIN PARENCHYMA: No mass effect or edema. Small focal encephalomalacia in the inferior right occipital lobe and in the high medial right and left parietal lobes, all likely the result of old infarcts. Mild periventricular white matter signal abnormality consistent with chronic microvascular ischemic change. VENTRICLES: Unremarkable. No hydrocephalus. CRANIUM: Unremarkable. ORBITS: Grossly unremarkable. PARANASAL SINUSES/MASTOIDS: Clear VASCULAR SYSTEM: Skull base flow voids intact. OTHER FINDINGS: None. IMPRESSION: No evidence of acute infarct. Small old right occipital and bilateral medial parietal infarcts, [employer]PRES[employer] distribution. No other significant abnormality.
--- NOTE | 2017-06-27 06:04 | CP.PCM.PCO ---
Physician Communication Note - Physician Communication Note Physician Communication Note: mribrain neg for acute infarcts. recommend pt/ot. sign off
[2017-06-27 06:12] LABS: HEMATOCRIT 32.2 % (36.0-48.0); MEAN CELL VOLUME 92.5 fl (80.0-105.0); MEAN CORPUSCULAR HEMOGLOBIN 31.3 pg (25.0-35.0); MEAN CORPUSCULAR HGB CONC 33.9 g/dl (31.0-37.0); MEAN PLATELET VOLUME 9.4 fl (7.0-11.0); RED CELL DISTRIBUTION WIDTH 13.1 % (11.5-14.5)
[2017-06-27] MEDS: Apap-Butalbital-Caffeine 325-50-40mg Tab PO PRN ×2 (06:47→22:26)
[2017-06-27 07:11] LABS: ALB/GLOB RATIO 1.4 (1.1-1.8); ALKALINE PHOSPHATASE 93 U/L (38-126); ALT/SGPT 31 U/L (7-56); AST/SGOT 22 U/L (14-36); BILIRUBIN,TOTAL 0.4 mg/dL (0.2-1.3); BLOOD UREA NITROGEN 6 mg/dL (7-21); CALCIUM 9.3 mg/dL (8.4-10.5); CARBON DIOXIDE 23 mmol/L (21-33); CHLORIDE 107 mmol/L (98-107); GFR AFRICAN-AMERICAN > 60; GLUCOSE,RANDOM 109 mg/dL (70-110); POTASSIUM 3.8 mmol/L (3.6-5.0); SODIUM 137 mmol/L (132-148); TOTAL PROTEIN 6.3 g/dL (5.8-8.3)
[2017-06-27] MEDS: cefTRIAXone 1 gm 1 GM/100 ML BAG IVPB SCH (10:14)
[2017-06-27] MEDS: Morphine 15 mg SR Tab PO SCH ×2 (10:19→22:18)
[2017-06-27] MEDS: CARISOPRODOL 350 MG PO SCH ×3 (10:21→17:13)
--- NOTE | 2017-06-27 11:23 | CP.PCM.PN ---
Subjective - Date & Time of Evaluation Date of Evaluation: 06/27/17 Time of Evaluation: 07:45 - Subjective Subjective: Patient seen and examined at bedside. No acute events reported overnight. Patient reports poor night sleep with challenge with pain associated with back and lower legs. patient reports continued itching sensation with mild improvement from onset. Patient reports work with PT was challenge. Patient denies worsening weakness, or new onset of symptoms regarding neuro deficits, denies chest pain, shortness of breath, abdominal pain, vomiting, diarrhea, constipation. Objective - Vital Signs/Intake and Output Vital Signs (last 24 hours): Temp Pulse Resp BP Pulse Ox 98.7 F 70 20 139/90 97 06/27/17 06:00 06/27/17 10:20 06/27/17 06:00 06/27/17 10:20 06/27/17 06:00 Intake and Output: 06/27/17 06/27/17 06:59 18:59 Intake Total 360 Output Total 1300 Balance -940 - Medications Medications: Current Medications Acetaminophen/Butalbital/Caffeine (Fioricet) 1 tab PO Q4 PRN PRN Reason: Headache Last Admin: 06/27/17 06:47 Dose: 1 tab Albuterol/Ipratropium (Duoneb 3 Mg/0.5 Mg (3 Ml) Ud) 3 ml IH Q2H PRN PRN Reason: Shortness of Breath Aspirin (Aspirin Chewable) 81 mg PO DAILY [facility] Last Admin: 06/27/17 10:18 Dose: 81 mg Diazepam (Valium) 5 mg PO BID [facility] PRN Reason: Protocol Last Admin: 06/27/17 10:20 Dose: 5 mg Diphenhydramine HCl (Benadryl) 25 mg IVP Q4H PRN PRN Reason: Allergy symptoms Last Admin: 06/26/17 23:45 Dose: 25 mg Docusate Sodium (Colace) 100 mg PO BID [facility] Last Admin: 06/27/17 10:18 Dose: 100 mg Famotidine (Pepcid) 40 mg PO HS [facility] Last Admin: 06/26/17 23:16 Dose: 40 mg Heparin Sodium (Porcine) (Heparin) 5,000 units SC Q12 [facility] PRN Reason: Protocol Last Admin: 06/27/17 10:18 Dose: 5,000 units Hydromorphone HCl (Dilaudid) 4 mg PO Q4 [facility] Ceftriaxone Sodium (Rocephin 1 Gram Ivpb) 1 gm in 100 mls @ 100 mls/hr IVPB DAILY [facility] PRN Reason: Protocol Last Admin: 06/27/17 10:14 Dose: 100 mls/hr Morphine Sulfate (Morphine Extended Release Tab) 15 mg PO Q12 [facility] Last Admin: 06/27/17 10:19 Dose: 15 mg Mupirocin (Bactroban Ointment) 0 gm TOP TID [facility] Last Admin: 06/27/17 10:21 Dose: Not Given Carisoprodol [Soma] (350 Mg (Home Med)) 350 mg PO TID [facility] Last Admin: 06/27/17 10:21 Dose: Not Given Propranolol HCl (Inderal) 10 mg PO BID [facility] Last Admin: 06/27/17 10:19 Dose: 10 mg Topiramate (Topamax) 50 mg PO BID [facility] PRN Reason: Protocol Last Admin: 06/27/17 10:20 Dose: 50 mg Verapamil HCl (Calan Tab) 40 mg PO TID [facility] Last Admin: 06/27/17 10:20 Dose: 40 mg - Labs Labs: 06/27/17 05:30 06/27/17 05:30 PT 11.4 SECONDS (9.4-12.5) 06/25/17 16:13 INR 1.04 (0.93-1.08) 06/25/17 16:13 APTT 30.9 Seconds (25.1-36.5) 06/25/17 16:13 - Head Exam Head Exam: ATRAUMATIC, NORMAL INSPECTION, NORMOCEPHALIC - Eye Exam Eye Exam: EOMI, PERRL - ENT Exam ENT Exam: Mucous Membranes Moist - Neck Exam Neck Exam: Full ROM - Respiratory Exam Respiratory Exam: Clear to Ausculation Bilateral, NORMAL BREATHING PATTERN. absent: Rales, Rhonchi, Wheezes - Cardiovascular Exam Cardiovascular Exam: REGULAR RHYTHM, +S1, +S2 - GI/Abdominal Exam GI & Abdominal Exam: Soft, Normal Bowel Sounds. absent: Guarding, Rigid, Tenderness, Mass - Extremities Exam Extremities Exam: absent: Calf Tenderness, Pedal Edema Additional comments: left lwer extremity with nail scratch/abrasions no evidence of purulence, drainage - Back Exam Back Exam: NORMAL INSPECTION - Neurological Exam Neurological Exam: Alert, Awake, Oriented x3 Neuro motor strength exam: Left Upper Extremity: 5, Right Upper Extremity: 5, Left Lower Extremity: 5, Right Lower Extremity: 5 Additional comments: gait with assistance showing shuffling gait improved from past 24hours - Psychiatric Exam Psychiatric exam: Depressed - Skin Skin Exam: Dry, Intact, Warm Assessment and Plan - Assessment and Plan (Free Text) Assessment: Patient is a 61 year old female with PMH of CVA x7 with extensive investigation and requiring several months of rehab, Migraines, HTN, psoriatic arthritis, chronic back pain with cervical and lumbar stenosss, COPD, anxiety and tobacco use who presented to [facility] from PMD for elevated B, LE pruritis x 1 week, headache and generalized weakness. Patient admitted for further investigation of weakness, CT and MRI showing no acute intracranial findings and evidence of older infarcts. Patient currently with evaluation from neurology and PT showing need for further therapy Plan: 1. Generalized weakness, unsteady gait - Etiology: TIA vs. CVA vs. HTN urgency - CT Head on admission: No acute intracranial hemorrhage, small foci of hypodensity likely old infarcts - Neurology consulted, appreciate recs - Head MRI showing no acute abnormalities - Control of BP - PT/OT eval - Signed off case - PT eval stating need for NIK vs. strict at home physical therapy - Neurochecks Q4H - Continue ASA, carisoprodol 2. Lower extremity erythema/rash - Etiology: Psoriasis flare up vs. allergic reaction vs. cellulitis - LE doppler b/l negative for DVT - Benadryl 25mg IV PRN - Continue home pain management, Dilaudid 8mg Q6H PRN, Morphine ER 15mg BID - Bactroban cream - IV rocephin - Monitor clinical course 3. Hx Depression - Psych consult, appreciate recs 4. Chronic Pain secondary to bulged discs, spinal stenosis - Dilaudid 4mg Q4H PRN - Valium 5mg BID - Morphine 15mg PO BID 5. HTN - Stable here in hospital - Continue home meds, Propranolol, Topamax and Verapamil - Monitor 6. Hx of Migraines - Continue Fioricet DVT PPX: Heparin GI PPX: Pepcid Case and plan discussed with attending Dr. Gutiérrez
[2017-06-27] MEDS: DiphenhydrAMINE 50 mg/ml Inj IVP PRN (12:20)
[2017-06-28] MEDS: DiphenhydrAMINE 50 mg/ml Inj IVP PRN ×2 (04:32→12:06)
[2017-06-28 05:55] LABS: HEMATOCRIT 31.9 % (36.0-48.0); MEAN CELL VOLUME 92.5 fl (80.0-105.0); MEAN CORPUSCULAR HEMOGLOBIN 31.6 pg (25.0-35.0); MEAN CORPUSCULAR HGB CONC 34.2 g/dl (31.0-37.0); MEAN PLATELET VOLUME 9.3 fl (7.0-11.0); WHITE BLOOD COUNT 4.8 10^3/ul (4.5-11.0)
[2017-06-28 06:07] VITALS: O2SAT 98
[2017-06-28 06:51] LABS: ALB/GLOB RATIO 1.5 (1.1-1.8); ALKALINE PHOSPHATASE 85 U/L (38-126); ALT/SGPT 28 U/L (7-56); AST/SGOT 20 U/L (14-36); BILIRUBIN,TOTAL 0.4 mg/dL (0.2-1.3); BLOOD UREA NITROGEN 8 mg/dL (7-21); CALCIUM 9.2 mg/dL (8.4-10.5); CARBON DIOXIDE 24 mmol/L (21-33); CHLORIDE 106 mmol/L (98-107); GFR AFRICAN-AMERICAN > 60; GLUCOSE,RANDOM 99 mg/dL (70-110); POTASSIUM 3.3 mmol/L (3.6-5.0); SODIUM 135 mmol/L (132-148); TOTAL PROTEIN 6.1 g/dL (5.8-8.3)
[2017-06-28] MEDS ORDERED: Potassium Chloride 20 mEq ER Tab PO ONE ×2 (08:00→10:00)
[2017-06-28] MEDS: Morphine 15 mg SR Tab PO SCH (10:19)
[2017-06-28] MEDS: cefTRIAXone 1 gm 1 GM/100 ML BAG IVPB SCH (10:20)
[2017-06-28] MEDS: CARISOPRODOL 350 MG PO SCH ×3 (10:48→17:46)
--- NOTE | 2017-06-28 12:05 | CP.PCM.PN ---
Subjective - Date & Time of Evaluation Date of Evaluation: 06/28/17 Time of Evaluation: 07:50 - Subjective Subjective: Patient seen and examined in AM at bedside. No acute events reported overnight. Patient indicates she continues to have itchiness of her legs which is improved and back pain which is chronic, controlled with pain medication. Patient reports she has more physical mobility today. Patient denies chest pain, shortness of breath, n/v/f/c. Objective - Vital Signs/Intake and Output Vital Signs (last 24 hours): Temp Pulse Resp BP Pulse Ox 98.2 F 96 H 20 140/90 98 06/28/17 06:00 06/28/17 10:20 06/28/17 06:00 06/28/17 10:20 06/28/17 06:00 Intake and Output: 06/28/17 06/28/17 06:59 18:59 Intake Total 420 Balance 420 - Medications Medications: Current Medications Acetaminophen/Butalbital/Caffeine (Fioricet) 1 tab PO Q4 PRN PRN Reason: Headache Last Admin: 06/27/17 22:26 Dose: 1 tab Albuterol/Ipratropium (Duoneb 3 Mg/0.5 Mg (3 Ml) Ud) 3 ml IH Q2H PRN PRN Reason: Shortness of Breath Aspirin (Aspirin Chewable) 81 mg PO DAILY [facility] Last Admin: 06/28/17 10:20 Dose: 81 mg Diazepam (Valium) 5 mg PO BID ANDREW PRN Reason: Protocol Last Admin: 06/28/17 10:19 Dose: 5 mg Diphenhydramine HCl (Benadryl) 25 mg IVP Q4H PRN PRN Reason: Allergy symptoms Last Admin: 06/28/17 04:32 Dose: 25 mg Docusate Sodium (Colace) 100 mg PO BID ANDREW Last Admin: 06/28/17 10:18 Dose: 100 mg Famotidine (Pepcid) 40 mg PO HS [facility] Last Admin: 06/27/17 22:18 Dose: 40 mg Heparin Sodium (Porcine) (Heparin) 5,000 units SC Q12 ANDREW PRN Reason: Protocol Last Admin: 06/28/17 10:23 Dose: 5,000 units Hydromorphone HCl (Dilaudid) 4 mg PO Q4 PRN PRN Reason: Pain, severe (8-10) Ceftriaxone Sodium (Rocephin 1 Gram Ivpb) 1 gm in 100 mls @ 100 mls/hr IVPB DAILY [facility] PRN Reason: Protocol Last Admin: 06/28/17 10:20 Dose: 100 mls/hr Morphine Sulfate (Morphine Extended Release Tab) 15 mg PO Q12 [facility] Last Admin: 06/28/17 10:19 Dose: 15 mg Mupirocin (Bactroban Ointment) 0 gm TOP TID [facility] Last Admin: 06/28/17 10:47 Dose: Not Given Carisoprodol [Soma] (350 Mg (Home Med)) 350 mg PO TID [facility] Last Admin: 06/28/17 10:48 Dose: Not Given Propranolol HCl (Inderal) 10 mg PO BID [facility] Last Admin: 06/28/17 10:18 Dose: 10 mg Topiramate (Topamax) 50 mg PO BID [facility] PRN Reason: Protocol Last Admin: 06/28/17 10:20 Dose: 50 mg Verapamil HCl (Calan Tab) 40 mg PO TID [facility] Last Admin: 06/28/17 10:20 Dose: 40 mg - Labs Labs: 06/28/17 05:30 06/28/17 05:30 PT 11.4 SECONDS (9.4-12.5) 06/25/17 16:13 INR 1.04 (0.93-1.08) 06/25/17 16:13 APTT 30.9 Seconds (25.1-36.5) 06/25/17 16:13 - Constitutional Appears: No Acute Distress - Head Exam Head Exam: ATRAUMATIC, NORMAL INSPECTION, NORMOCEPHALIC - Eye Exam Eye Exam: EOMI, PERRL - ENT Exam ENT Exam: Mucous Membranes Moist - Respiratory Exam Respiratory Exam: Clear to Ausculation Bilateral, NORMAL BREATHING PATTERN. absent: Rales, Rhonchi, Wheezes - Cardiovascular Exam Cardiovascular Exam: REGULAR RHYTHM, +S1, +S2 - GI/Abdominal Exam GI & Abdominal Exam: Soft, Normal Bowel Sounds. absent: Tenderness - Extremities Exam Extremities Exam: absent: Pedal Edema Additional comments: scabbing noted on left anterior lower extremity, no eyrthema, tracking or drainage from wounds noted - Neurological Exam Neurological Exam: Abnormal Gait (Gait requiring assistance with rolling walker or assistance ), Alert, Awake, Oriented x3. absent: Motor Sensory Deficit - Psychiatric Exam Psychiatric exam: Normal Affect - Skin Skin Exam: Dry, Intact, Warm Assessment and Plan - Assessment and Plan (Free Text) Assessment: Patient is a 61 year old female with PMH of CVA x7 with extensive investigation and requiring several months of rehab, Migraines, HTN, psoriatic arthritis, chronic back pain with cervical and lumbar stenosss, COPD, anxiety and tobacco use who presented to [facility] ED from PMD for elevated B, LE pruritis x 1 week, headache and generalized weakness. Patient admitted for further investigation of weakness, CT and MRI showing no acute intracranial findings and evidence of older infarcts. Patient currently with evaluation from neurology and PT showing need for further therapy Plan: 1. Generalized weakness, unsteady gait - Etiology: TIA vs. CVA vs. HTN urgency - CT Head on admission: No acute intracranial hemorrhage, small foci of hypodensity likely old infarcts - Neurology consulted, appreciate recs - Head MRI showing no acute abnormalities - Control of BP - Signed off case - PT eval stating need for NIK vs. strict at home physical therapy - Neurochecks Q4H - Continue ASA, carisoprodol - TCU evaluation today 2. Lower extremity erythema/rash - Etiology: Psoriasis flare up vs. allergic reaction vs. cellulitis - LE doppler b/l negative for DVT - Benadryl 25mg IV PRN - Continue home pain management, Dilaudid 8mg Q6H PRN, Morphine ER 15mg BID - Bactroban cream - IV rocephin day 3 - Monitor clinical course 3. Hx Depression - Psych consult, appreciate recs 4. Chronic Pain secondary to bulged discs, spinal stenosis - Dilaudid 4mg Q4H PRN - Valium 5mg BID - Morphine 15mg PO BID 5. HTN - Stable here in hospital - Continue home meds, Propranolol, Topamax and Verapamil - Monitor 6. Hx of Migraines - Continue Fioricet DVT PPX: Heparin GI PPX: Pepcid Case and plan discussed with attending Dr. Gutiérrez
[2017-06-28 12:58] VITALS: RESP 16
[2017-06-28 17:58] VITALS: BP 127/76
--- NOTE | 2017-06-28 18:00 | PN ---
DATE: SUBJECTIVE: This is a 61-year-old female with past medical history of CVA, hypertension, migraine, arthritis, chronic back pain, COPD and anxiety, who came with the lower extremity weakness and headache. The patient has been doing better. Denies any not in distress. PHYSICAL EXAMINATION: HEENT: Normocephalic and atraumatic. NECK: Supple. NEUROLOGIC: Alert, awake, and oriented to x3. No aphasia. Cranial nerves II-XII were tested. Pupils reactive. EOM intact. Visual sandoval full. No facial asymmetry. Tongue midline. Motor examination moves all the extremity equally, toe normal. Deep tendon reflexes is 1+. Both plantars are downgoing. Sensory appears intact. Cerebellar and gait deferred. MRI of the brain was done, which does not show any acute infarct, only old right occipital and bilateral parietal infarct in the posterior [employer] distribution and workup progress. Continue present management. We will follow up. Bolivar Davis MD
--- NOTE | 2017-06-28 18:02 | CP.PCM.DIS ---
Provider - Provider Date of Admission: 06/26/17 15:54 Attending physician: Jay Jay Davison MD Primary care physician: Sp Gutiérrez MD Consults: Psych: Dr. Jaki Hoffman Neuro: Dr. Bolivar Davis Time Spent in preparation of Discharge (in minutes): 25 Diagnosis - Discharge Diagnosis (1) Hypertensive emergency Status: Resolved (2) Cerebral infarction Status: Chronic (3) Depression Status: Chronic (4) Uncontrolled hypertension Status: Chronic (5) Anxiety Status: Chronic (6) Generalized anxiety disorder Status: Chronic Priority: High Hospital Course - Lab Results Lab Results: Most Recent Lab Values WBC 4.8 10^3/ul (4.5-11.0) 06/28/17 05:30 RBC 3.45 10^6/uL (3.5-6.1) L 06/28/17 05:30 Hgb 10.9 g/dL (12.0-16.0) L 06/28/17 05:30 Hct 31.9 % (36.0-48.0) L 06/28/17 05:30 MCV 92.5 fl (80.0-105.0) 06/28/17 05:30 MCH 31.6 pg (25.0-35.0) 06/28/17 05:30 MCHC 34.2 g/dl (31.0-37.0) 06/28/17 05:30 RDW 13.0 % (11.5-14.5) 06/28/17 05:30 Plt Count 206 10^3/uL (120.0-450.0) 06/28/17 05:30 MPV 9.3 fl (7.0-11.0) 06/28/17 05:30 Gran % 67.8 % (50.0-68.0) 06/25/17 16:13 Lymph % (Auto) 20.9 % (22.0-35.0) L 06/25/17 16:13 [place] % (Auto) 7.0 % (1.0-6.0) H 06/25/17 16:13 Eos % (Auto) 4.0 % (1.5-5.0) 06/25/17 16:13 Baso % (Auto) 0.3 % (0.0-3.0) 06/25/17 16:13 Gran # 5.25 (1.4-6.5) 06/25/17 16:13 Lymph # 1.6 (1.2-3.4) 06/25/17 16:13 [place] # 0.5 (0.1-0.6) 06/25/17 16:13 Eos # 0.3 (0.0-0.7) 06/25/17 16:13 Baso # 0.02 K/mm3 (0.0-2.0) 06/25/17 16:13 PT 11.4 SECONDS (9.4-12.5) 06/25/17 16:13 INR 1.04 (0.93-1.08) 06/25/17 16:13 APTT 30.9 Seconds (25.1-36.5) 06/25/17 16:13 Sodium 135 mmol/L (132-148) 06/28/17 05:30 Potassium 3.3 mmol/L (3.6-5.0) L 06/28/17 05:30 Chloride 106 mmol/L (98-107) 06/28/17 05:30 Carbon Dioxide 24 mmol/L (21-33) 06/28/17 05:30 Anion Gap 8 (10-20) L 06/28/17 05:30 BUN 8 mg/dL (7-21) 06/28/17 05:30 Creatinine 0.9 mg/dl (0.7-1.2) 06/28/17 05:30 Est GFR ( Amer) > 60 06/28/17 05:30 Est GFR (Non-Af Amer) > 60 06/28/17 05:30 Random Glucose 99 mg/dL (70-110) 06/28/17 05:30 Calcium 9.2 mg/dL (8.4-10.5) 06/28/17 05:30 Total Bilirubin 0.4 mg/dL (0.2-1.3) 06/28/17 05:30 AST 20 U/L (14-36) 06/28/17 05:30 ALT 28 U/L (7-56) 06/28/17 05:30 Alkaline Phosphatase 85 U/L (38-126) 06/28/17 05:30 Total Protein 6.1 g/dL (5.8-8.3) 06/28/17 05:30 Albumin 3.6 g/dL (3.0-4.8) 06/28/17 05:30 Globulin 2.5 gm/dL 06/28/17 05:30 Albumin/Globulin Ratio 1.5 (1.1-1.8) 06/28/17 05:30 Triglycerides 86 mg/dL (35-160) 06/26/17 12:00 Cholesterol 176 mg/dL (130-200) 06/26/17 12:00 LDL Cholesterol Direct 108 mg/dL (0-129) 06/26/17 12:00 HDL Cholesterol 57 mg/dL (29-60) 06/26/17 12:00 Lipase 93 U/L (23-300) 06/25/17 16:13 Urine Color Yellow (YELLOW) 06/25/17 19:03 Urine Appearance Clear (CLEAR) 06/25/17 19:03 Urine pH 6.5 (4.7-8.0) 06/25/17 19:03 Ur Specific [place] <= 1.005 (1.005-1.035) 06/25/17 19:03 Urine Protein Negative mg/dL (<30 mg/dL) 06/25/17 19:03 Urine Glucose (UA) Negative mg/dL (NEGATIVE) 06/25/17 19:03 Urine Ketones Negative mg/dL (NEGATIVE) 06/25/17 19:03 Urine Blood Negative (NEGATIVE) 06/25/17 19:03 Urine Nitrate Negative (NEGATIVE) 06/25/17 19:03 Urine Bilirubin Negative (NEGATIVE) 06/25/17 19:03 Urine Urobilinogen 0.2 E.U./dL (<1 E.U./dL) 06/25/17 19:03 Ur Leukocyte Esterase Negative [place]/uL (NEGATIVE) 06/25/17 19:03 - Hospital Course Hospital Course: Ms. Elizondo is a 61 yo F with PMH CVA x7 requiring several months of rehab, HTN, migraines, psoriatic arthritis, chronic back pain w/ cervical and lumbar stenoses, COPD, anxiety and tobacco use who presented with LE (L>R) swelling, redness, and generalized itchiness x1 week, a headache and generalized weakness and pain. Patient was evaluated in the ED with Head CT showing no acute intracranial hemorrhage, small foci of hypodensity suspected to represent old infarcts. Neurology was consulted and recommended PT/OT evaluation, MRI of head , and control of Blood pressure. MRI of head was interpreted as negative for acute findings, with evidence of old infarcts. PT evaluated the patient with recommendations for discharge to Subacute rehab vs. strict outpatient physical therapy 3-5 times a week. Patient lower extremity swelling and generalized itching sensation was evaluated with extremity ultrasound which was negative for DVT. Patient was treated with benadryl for pruritis with reduction in symptomology. Patient neuro function was assessed over hospital stay to show improvement day to day. Of note patient reported to have history of depression, psych was consulted, awaiting final recommendations. Patient was evaluated for TCU placement and accepted for further work with physical therapy for reconditioning. Patient was evaluated to be hemodynamically stable, normotensive, euvolemic, and normothermic and was discharged to TCU for further rehabilitation due to her deconditioned state. Plan for care was discussed with patient and emphasis on continued physical therapy and observation were accepted and in understanding by patient. - Date & Time of H&P Date of H&P: 06/25/17 Time of H&P: 21:02 Discharge Exam - Head Exam Head Exam: ATRAUMATIC, NORMAL INSPECTION, NORMOCEPHALIC - Eye Exam Eye Exam: EOMI, PERRL - Respiratory Exam Respiratory Exam: Clear to PA & Lateral, NORMAL BREATHING PATTERN - Cardiovascular Exam Cardiovascular Exam: REGULAR RHYTHM, +S1 - GI/Abdominal Exam GI & Abdominal Exam: Normal Bowel Sounds, Soft. absent: Firm, Tenderness - Extremities Exam Extremities exam: normal capillary refill, pedal pulses present - Back Exam Back exam: paraspinal tenderness, vertebral tenderness. absent: FULL ROM - Neurological Exam Neurological exam: Abnormal Gait (gait with assistance only, slow, shuffling gait, improved from admisison), Alert, Oriented x3 - Psychiatric Exam Psychiatric exam: Normal Affect - Skin Skin Exam: Dry, Intact, Warm Additional comments: healed scabs without drainage or eyrhtema located on the left anterior lower extremity Discharge Plan - Follow Up Plan Condition: FAIR Disposition: REHAB FACILITY/REHAB UNIT Instructions: Transient Ischemic Attack (DC), Chronic Hypertension (DC), Hypertension (DC), Hypertension (GEN), Depression (DC) Additional Instructions: Follow up with PMD within 2-3 days of discharge from TCU Take medications as prescribed to you Continue to work with physical therapy for rehabilitation Transferring patient to TCU for physical therapy and reconditioning Referrals: Sp Gutiérrez MD [Primary Care Provider] -
[2017-06-28 18:43] VITALS: PULSE 79; TEMP 98.3
--- NOTE | 2017-06-28 19:31 | CON ---
DATE: HISTORY OF PRESENT ILLNESS: The patient is a 61-year-old female, history of CVAs, hypertension, migraines,psoriatic arthritis, chronic back pain. Patient also has history of anxiety and depression. Patient has one Jose hospitalization in 2013 for major depressive disorder. As well, patient was seeing psychiatrist in the community in the past. Psych consult was called for evaluation of depressive symptoms and patient has history of depression and anxiety. Patient was seen and examined. Patient is pleasant, cooperative, quite aware of her medical condition. Patient was talkative, spoke to this radio news writer about her losses in her life, about her mother who and also she had PTSD. Patient had multiple losses of her friends. Patient reported that at the present moment, she feels anxious, but denied being depressed, denied thoughts of killing herself or others. The patient did not express any interest for any medications at the present moment. The patient also denied thoughts of killing herself or others. Patient is interested to go and see therapist in the community as well as psychiatrist. This radio news writer provided patient with information of Dr. Per Villavicencio on the [address]; patient was appreciative. This radio news writer reviewed labs, vital signs, discussed case with the nursing staff. Patient is in behavioral control, does not have any psychotic symptoms, polite, participates in treatment plan. MENTAL STATUS EXAMINATION: Patient presented to be alert and oriented, pleasant, cooperative, intermittent eye contact. Speech was normal rate, tone, quality, and quantity. Mood described, "I had so many losses in my life." Affect was reactive. Mood congruent. Thought process was coherent and goal directed. Thought content, patient denied visual, auditory, or tactile hallucinations. Denied paranoid ideation. Patient denied thoughts of harming herself or others. Denied intents or plan. Insight and judgment are fair. Impulses are well controlled. IMPRESSION: As per history, patient has depression and anxiety, rule out mood disorder and anxiety disorder due to general medical condition. PLAN: Patient expressed no interest to start any antidepressants or anxiolytics. Patient is willing to be followed up with outpatient psychiatrist and therapist; phone number was provided. The patient was educated in case of the worsening of the symptoms. Ask medical team to call this radio news writer for a followup; patient verbalized understanding. Meanwhile, patient posed no imminent danger to self or others. This radio news writer will sign off. Should you have any questions, give me a call back. Thank you very much for letting me participate in the care of your patient. Jaki Hoffman MD
== END 2017-06-28 18:59 | DRG 305 ==
LOC: ED 15:02 → ERH 19:07 → 2RSO 20:48 → OBSVTOIN 06-26 15:54
PROVIDERS: ADMIT Internal Medicine; ATTEND Internal Medicine
DX: I16.1 Hypertensive emergency (principal); I69.354 Hemiplegia and hemiparesis following cerebral infarction affecting left non-dominant side; L40.50 Arthropathic psoriasis, unspecified; F32.9 Major depressive disorder, single episode, unspecified; J44.9 Chronic obstructive pulmonary disease, unspecified; G43.909 Migraine, unspecified, not intractable, without status migrainosus; I10 Essential (primary) hypertension; F41.1 Generalized anxiety disorder; M48.02 Spinal stenosis, cervical region; M48.061 Spinal stenosis, lumbar region without neurogenic claudication; G89.29 Other chronic pain; M19.90 Unspecified osteoarthritis, unspecified site; Z87.891 Personal history of nicotine dependence; Z88.2 Allergy status to sulfonamides

== ENCOUNTER 2017-06-28 18:50 | Inpatient (IN) | payer BC ==
[2017-06-28] MEDS ORDERED: Albuterol-Ipratrop 3 mg / 0.5 (3 ml) UD IH PRN (20:30)
[2017-06-28] MEDS: Morphine 15 mg SR Tab PO SCH (22:34)
[2017-06-28] MEDS: DiphenhydrAMINE 50 mg/ml Inj IVP PRN (22:38)
[2017-06-29 00:04] VITALS: BMI 22.7
[2017-06-29] MEDS: Apap-Butalbital-Caffeine 325-50-40mg Tab PO PRN ×2 (05:38→15:10)
[2017-06-29 06:20] LABS: BASO # 0.03 K/mm3 (0.0-2.0); BASO % 0.5 % (0.0-3.0); EOS # 0.2 (0.0-0.7); EOS % 3.1 % (1.5-5.0); GRAN # 2.82 (1.4-6.5); GRAN % 49.2 % (50.0-68.0); HEMATOCRIT 33.5 % (36.0-48.0); LYMPH # 2.2 (1.2-3.4); MEAN CELL VOLUME 92.8 fl (80.0-105.0); MEAN CORPUSCULAR HEMOGLOBIN 32.1 pg (25.0-35.0); MEAN CORPUSCULAR HGB CONC 34.6 g/dl (31.0-37.0); MEAN PLATELET VOLUME 9.5 fl (7.0-11.0); MONO # 0.5 (0.1-0.6); MONO % 8.2 % (1.0-6.0); RED CELL DISTRIBUTION WIDTH 13.3 % (11.5-14.5); WHITE BLOOD COUNT 5.7 10^3/ul (4.5-11.0)
[2017-06-29 06:34] LABS: ALB/GLOB RATIO 1.5 (1.1-1.8); ALKALINE PHOSPHATASE 89 U/L (38-126); ALT/SGPT 22 U/L (7-56); AST/SGOT 21 U/L (14-36); BILIRUBIN,TOTAL 0.4 mg/dL (0.2-1.3); BLOOD UREA NITROGEN 9 mg/dL (7-21); CALCIUM 9.5 mg/dL (8.4-10.5); CARBON DIOXIDE 23 mmol/L (21-33); CHLORIDE 105 mmol/L (98-107); GFR AFRICAN-AMERICAN > 60; GLUCOSE,RANDOM 97 mg/dL (70-110); POTASSIUM 3.8 mmol/L (3.6-5.0); SODIUM 136 mmol/L (132-148); TOTAL PROTEIN 6.4 g/dL (5.8-8.3)
--- NOTE | 2017-06-29 08:40 | CP.PCM.HP ---
History of Present Illness - History of Present Illness History of Present Illness: HPI: Patient is a 61 yo F with PMH CVA x7 requiring several months of rehab, HTN , migraines, psoriatic arthritis, chronic back pain w/ cervical and lumbar stenoses, COPD, anxiety and tobacco use who presented to the ED with LE (L>R) swelling, redness, and generalized itchiness x1 week, a headache and generalized weakness and pain. Patient was evaluated in the ED with Head CT showing no acute intracranial hemorrhage, small foci of hypodensity suspected to represent old infarcts. Neurology was consulted and recommended PT/OT evaluation, MRI of head, and control of Blood pressure. MRI of head was interpreted as negative for acute findings, with evidence of old infarcts. PT evaluated the patient with recommendations for discharge to Subacute rehab vs. strict outpatient physical therapy 3-5 times a week. Lower extremity symptoms were evaluated with ultrasound which was negative for DVT. Patient was treated with benadryl for pruritis with reduction in symptomology. Of note patient reported to have history of depression during hospitalization, psych was consulted, awaiting final recommendations. Today patient says she is having a lot of pain in her lower back and a headache which is not unusual for her. She says she has also been constipated and has not had a BM since last Saturday. She says she is still having some itching in her legs but the swelling has gone down. Patient denies fever, chills, changes in vision, chest pain, SOB, abdominal pain, nausea, vomiting, diarrhea. PMH: as above PSH: hysterectomy 2/2 fibroids Meds: Ellipta, Elocon, Soma, Zovirax, Valium, Albuterol, ASA, Bactroban, Fioricet, Propranolol, Topamax, Verapamil, Dilaudid, Morphine Allergies: Sulfa Present on Admission - Present on Admission Any Indicators Present on Admission: No Review of Systems - Review of Systems All systems: reviewed and no additional remarkable complaints except (as per HPI ) Past Patient History - Past Medical History & Family History Past Medical History?: Yes - Past Social History Smoking Status: Former Smoker - CARDIAC Hx Cardiac Disorders: Yes Hx Hypertension: Yes - PULMONARY Hx Chronic Obstructive Pulmonary Disease (COPD): Yes - NEUROLOGICAL Hx Migraine: Yes - HEENT Hx HEENT Problems: No - RENAL Hx Chronic Kidney Disease: No - ENDOCRINE/METABOLIC Hx Endocrine Disorders: No - HEMATOLOGICAL/ONCOLOGICAL Hx Blood Disorders: No - INTEGUMENTARY Hx Psoriasis: Yes - MUSCULOSKELETAL/RHEUMATOLOGICAL Hx Arthritis: Yes Hx Back Pain: Yes Hx Falls: Yes Hx Unsteady Gait: Yes - GASTROINTESTINAL Hx Gastrointestinal Disorders: No - GENITOURINARY/GYNECOLOGICAL Hx Reproductive Disorders: No - PSYCHIATRIC Hx Anxiety: Yes - SURGICAL HISTORY Hx Hysterectomy: Yes (2/2 fibroids) - ANESTHESIA Hx Anesthesia: Yes Hx Anesthesia Reactions: No Meds Allergies/Adverse Reactions: Allergies Allergy/AdvReac Type Severity Reaction Status Date / Time Sulfa (Sulfonamide Allergy ANAPHYLAXIS Verified 06/28/17 20:29 Antibiotics) Physical Exam - Constitutional Appears: Non-toxic, No Acute Distress - Head Exam Head Exam: ATRAUMATIC, NORMAL INSPECTION, NORMOCEPHALIC - Eye Exam Eye Exam: EOMI, Normal appearance - ENT Exam ENT Exam: Mucous Membranes Moist - Respiratory Exam Respiratory Exam: Clear to Auscultation Bilateral, NORMAL BREATHING PATTERN. absent: Accessory Muscle Use, Rales, Rhonchi, Wheezes, Respiratory Distress - Cardiovascular Exam Cardiovascular Exam: RRR, +S1, +S2 - GI/Abdominal Exam GI & Abdominal Exam: Normal Bowel Sounds, Soft. absent: Distended, Tenderness - Extremities Exam Extremities exam: Positive for: normal capillary refill, tenderness ( generalized ). Negative for: pedal edema - Neurological Exam Neurological exam: Abnormal Gait (seen while walking with PT ), Alert, Oriented x3 - Psychiatric Exam Psychiatric exam: Normal Affect, Normal Mood - Skin Skin Exam: Dry, Intact, Normal Color, Warm Results - Vital Signs Recent Vital Signs: Last Vital Signs Temp 97.9 F 06/29/17 06:00 Pulse 62 06/29/17 06:00 Resp 16 06/29/17 06:00 BP 129/79 06/29/17 06:00 Pulse Ox 96 06/29/17 06:00 - Labs Result Diagrams: 06/29/17 05:45 06/29/17 05:45 Labs: Laboratory Results - last 24 hr 06/29/17 06/29/17 06/29/17 05:45 05:45 05:45 WBC 5.7 RBC 3.61 Hgb 11.6 L Hct 33.5 L MCV 92.8 MCH 32.1 MCHC 34.6 RDW 13.3 Plt Count 231 MPV 9.5 Gran % 49.2 L Lymph % (Auto) 39.0 H [place] % (Auto) 8.2 H Eos % (Auto) 3.1 Baso % (Auto) 0.5 Gran # 2.82 Lymph # 2.2 [place] # 0.5 Eos # 0.2 Baso # 0.03 APTT 28.6 Sodium 136 Potassium 3.8 Chloride 105 Carbon Dioxide 23 Anion Gap 11 BUN 9 Creatinine 0.8 Est GFR ( Amer) > 60 Est GFR (Non-Af Amer) > 60 Random Glucose 97 Calcium 9.5 Total Bilirubin 0.4 AST 21 ALT 22 Alkaline Phosphatase 89 Total Protein 6.4 Albumin 3.8 Globulin 2.6 Albumin/Globulin Ratio 1.5 Assessment & Plan - Assessment and Plan (Free Text) Plan: 1. Generalized weakness, unsteady gait - Likely secondary to history of multiple CVAs - Neurology consulted - recs appreciated - CT Head on admission: No acute intracranial hemorrhage, small foci of hypodensity likely old infarcts - MRI Brain: no acute abnormalities - PT/OT in TCU - Continue ASA, carisoprodol 2. Lower extremity erythema/rash - possibly secondary to allergic reaction vs. cellulitis vs. psoriasis - LE doppler negative for DVT b/l - Benadryl 25mg IV PRN - IV rocephin 1g IV QD - Monitor 3. Hx Depression - Psych consulted (Dr. Hoffman) - recs appreciated 4. Chronic Pain secondary to bulged discs, spinal stenosis - Valium 5mg BID - Morphine 15mg PO BID 5. Constipation - Colace 100 mg PO BID 6. HTN - Stable - Continue home meds (Propranolol, Topamax and Verapamil) - Monitor 7. Hx of Migraines - Continue Fioricet Prophylactic Measures: Heparin, Pepcid Patient seen, examined, and discussed with attending
[2017-06-29] MEDS: CARISOPRODOL 350 MG PO SCH ×3 (10:51→17:16)
[2017-06-29] MEDS: cefTRIAXone 1 gm 1 GM/100 ML BAG IVPB SCH (10:53)
[2017-06-29] MEDS: Morphine 15 mg SR Tab PO SCH ×2 (10:56→21:53)
[2017-06-29] MEDS: DiphenhydrAMINE 50 mg/ml Inj IVP PRN (21:48)
[2017-06-30] MEDS: CARISOPRODOL 350 MG PO SCH ×3 (09:47→17:05)
[2017-06-30] MEDS: UMECLIDINIUM IH SCH (10:18)
[2017-06-30] MEDS: VILANTEROL IH SCH (10:18)
[2017-06-30] MEDS: Morphine 15 mg SR Tab PO SCH ×2 (10:22→21:02)
[2017-06-30] MEDS: cefTRIAXone 1 gm 1 GM/100 ML BAG IVPB SCH (10:22)
[2017-06-30] MEDS: DiphenhydrAMINE 50 mg/ml Inj IVP PRN ×2 (10:41→20:50)
[2017-06-30 12:50] LABS: FREE T4 1.44 ng/dL (0.78-2.19)
[2017-06-30 13:04] LABS: THYROID STIMULATING HORMONE 0.63 mIU/mL (0.46-4.68)
[2017-07-01] MEDS: DiphenhydrAMINE 50 mg/ml Inj IVP PRN ×2 (08:24→20:18)
--- NOTE | 2017-07-01 09:24 | CP.PCM.PN ---
Subjective - Date & Time of Evaluation Date of Evaluation: 07/01/17 Time of Evaluation: 07:45 - Subjective Subjective: Patient seen and examined at bedside in TCU. Patient resting comfortably. No acute events overnight. Patient reports improved physical strength since admission but still endorses weakness and dizziness. Patient denies syncope, palpitations, chest pain, shortness of breath, n/v/f/c. She agrees with plan for continued work with physical therapy for reconditioning. Objective - Vital Signs/Intake and Output Vital Signs (last 24 hours): Temp Pulse Resp BP Pulse Ox 97.8 F 65 18 106/61 99 07/01/17 05:00 07/01/17 05:00 07/01/17 05:00 07/01/17 05:00 07/01/17 05:00 - Medications Medications: Current Medications Acetaminophen/Butalbital/Caffeine (Fioricet) 1 tab PO Q4 PRN PRN Reason: Headache Last Admin: 06/29/17 15:10 Dose: 1 tab Albuterol/Ipratropium (Duoneb 3 Mg/0.5 Mg (3 Ml) Ud) 3 ml IH Q2H PRN PRN Reason: Shortness of Breath Aspirin (Aspirin Chewable) 81 mg PO DAILY [facility] Last Admin: 06/30/17 10:18 Dose: 81 mg Diazepam (Valium) 5 mg PO BID [facility] PRN Reason: Protocol Last Admin: 06/30/17 17:47 Dose: 5 mg Diphenhydramine HCl (Benadryl) 25 mg IVP Q4H PRN PRN Reason: Allergy symptoms Last Admin: 07/01/17 08:24 Dose: 25 mg Docusate Sodium (Colace) 100 mg PO BID [facility] Last Admin: 06/30/17 17:44 Dose: 100 mg Famotidine (Pepcid) 40 mg PO HS [facility] Last Admin: 06/30/17 21:05 Dose: 40 mg Heparin Sodium (Porcine) (Heparin) 5,000 units SC Q12 [facility] PRN Reason: Protocol Last Admin: 06/30/17 21:01 Dose: 5,000 units Home Med (Home Med) 1 unit PO TID [facility] Last Admin: 06/30/17 17:05 Dose: Not Given Home Med (Home Med) 1 unit IH DAILY [facility] Last Admin: 06/30/17 10:18 Dose: 1 unit Hydromorphone HCl (Dilaudid) 4 mg PO Q4H PRN; Protocol PRN Reason: Pain, severe (8-10) Last Admin: 06/30/17 23:15 Dose: 4 mg Ceftriaxone Sodium (Rocephin 1 Gram Ivpb) 1 gm in 100 mls @ 100 mls/hr IVPB DAILY [facility] PRN Reason: Protocol Last Admin: 06/30/17 10:22 Dose: 100 mls/hr Morphine Sulfate (Morphine Extended Release Tab) 15 mg PO Q12 [facility] Last Admin: 06/30/17 21:02 Dose: 15 mg Mupirocin (Bactroban Ointment) 0 gm TOP BID [facility] Last Admin: 06/30/17 17:43 Dose: 1 appl Propranolol HCl (Inderal) 10 mg PO BID [facility] Last Admin: 06/30/17 17:47 Dose: 10 mg Topiramate (Topamax) 50 mg PO BID [facility] PRN Reason: Protocol Last Admin: 06/30/17 17:47 Dose: 50 mg Verapamil HCl (Calan Tab) 40 mg PO TID [facility] Last Admin: 06/30/17 17:44 Dose: 40 mg - Labs Labs: 06/29/17 05:45 06/29/17 05:45 APTT 28.6 Seconds (25.1-36.5) 06/29/17 05:45 - Constitutional Appears: Well, No Acute Distress - Head Exam Head Exam: ATRAUMATIC, NORMAL INSPECTION, NORMOCEPHALIC - Eye Exam Eye Exam: EOMI, PERRL Pupil Exam: PERRL - ENT Exam ENT Exam: Mucous Membranes Moist - Neck Exam Neck Exam: Full ROM - Respiratory Exam Respiratory Exam: Clear to Ausculation Bilateral, NORMAL BREATHING PATTERN. absent: Rales, Rhonchi, Wheezes - Cardiovascular Exam Cardiovascular Exam: REGULAR RHYTHM, +S1, +S2. absent: JVD, Murmur - GI/Abdominal Exam GI & Abdominal Exam: Soft, Normal Bowel Sounds. absent: Guarding, Rigid, Tenderness, Rebound - Extremities Exam Extremities Exam: Normal Capillary Refill. absent: Calf Tenderness, Pedal Edema - Back Exam Back Exam: paraspinal tenderness (lumbar bilateral). absent: rash noted - Neurological Exam Neurological Exam: Abnormal Gait (shortned stride gait, use with walker), Alert , Awake, Oriented x3 Neuro motor strength exam: Left Upper Extremity: 5, Right Upper Extremity: 5, Left Lower Extremity: 4, Right Lower Extremity: 4 - Psychiatric Exam Psychiatric exam: Normal Affect, Normal Mood - Skin Skin Exam: Dry, Intact. absent: Rash Assessment and Plan - Assessment and Plan (Free Text) Assessment: Patient is a 61 year old female with past medical history of CVAx7 with history of rehab, HTN, migraines, psoriatic arthritis, chronic back pain with cervical and lumbar stenosis, COPD, anxiety and tobacco use who presented with HTN, lower extremity pruritus x 1 week, headache and generalized weakness. Patient was admitted and evaluated for weakness. Patient evaluated by PT to be deconditioned and transferred to TCU for rehabilitation. Plan: 1. Generalized weakness, unsteady gait - Etiology:history of multiple CVAs vs. deconditioning vs. vertigo - CT Head on admission: No acute intracranial hemorrhage, small foci of hypodensity likely old infarcts - MRI Brain: no acute abnormalities - PT/OT in TCU - Continue ASA, carisoprodol - Meclizine bid 2. Lower extremity erythema/rash - Etiology: allergic reaction vs. cellulitis vs. psoriasis - LE doppler negative for DVT b/l - Benadryl 25mg IV PRN - IV rocephin 1g IV QD day 3 - Monitor 3. Hx Depression - Psych consulted, no indication for starting antidepressants - psych signed off 4. Chronic Pain secondary to bulged discs, spinal stenosis - Valium 5mg BID - Morphine 15mg PO BID 5. Constipation - Colace 100 mg PO BID - Continue to monitor 6. HTN - Stable - Continue home meds (Propranolol, Topamax and Verapamil) - Monitor 7. Hx of Migraines - Continue Fioricet DVT ppx: heparin GI ppx: Protonix Case and plan discussed with attending
[2017-07-01] MEDS: CARISOPRODOL 350 MG PO SCH ×2 (10:50→14:00)
[2017-07-01] MEDS: UMECLIDINIUM IH SCH (10:50)
[2017-07-01] MEDS: VILANTEROL IH SCH (10:50)
[2017-07-01] MEDS: Morphine 15 mg SR Tab PO SCH ×2 (10:51→22:03)
[2017-07-01] MEDS: cefTRIAXone 1 gm 1 GM/100 ML BAG IVPB SCH (10:52)
--- NOTE | 2017-07-01 10:59 | CP.PCM.CON ---
<Misty Tolentino - Last Filed: 07/01/17 10:39> History of Present Illness - History of Present Illness History of Present Illness: Patient is seen at bedside for psychiatric consult. Client lives with her and has not been able to work due to her medical issues for the last 3 years. There is financial stress. Her is a support and the marriage is stable. Patient indicates she is depressed, but this as more of a fpc chronic depression. Family history includes her mother who suffered significantly from PTSD throughout her life. 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 She saw a psychiatrist she thinks after her mother and was prescribed Prozac, which was stopped due to concerns it may have contributed to her stroke. There is no history of suicide attempts. Denies the presence of hallucinations, delusions or paranoia. Focus and concentration, as well as memory both short and fpc have deficits. Sleep she reports is poor due to pain, appetite is also reported as poor with no enjoyment of food. Patient is consenting to a referral for outpatient therapy, is ambivalent regarding medication. I would consider Remeron 7.5mg @ HS for her if she consents. Will continue to follow. Past Patient History - Past Medical History & Family History Past Medical History?: Yes - Past Social History Smoking Status: Former Smoker - CARDIAC Hx Hypertension: Yes - PULMONARY Hx Chronic Obstructive Pulmonary Disease (COPD): Yes - NEUROLOGICAL HX Cerebrovascular Accident: Yes (x7) - HEENT Hx HEENT Problems: No - RENAL Hx Chronic Kidney Disease: No - ENDOCRINE/METABOLIC Hx Endocrine Disorders: No - HEMATOLOGICAL/ONCOLOGICAL Hx Blood Disorders: No - INTEGUMENTARY Hx Psoriasis: Yes - MUSCULOSKELETAL/RHEUMATOLOGICAL Hx Arthritis: Yes Hx Back Pain: Yes Hx Falls: Yes Hx Unsteady Gait: Yes - GASTROINTESTINAL Hx Gastrointestinal Disorders: No - GENITOURINARY/GYNECOLOGICAL Hx Reproductive Disorders: No - PSYCHIATRIC Hx Anxiety: Yes - SURGICAL HISTORY Hx Hysterectomy: Yes (2/2 fibroids) - ANESTHESIA Hx Anesthesia: Yes Hx Anesthesia Reactions: No Meds Allergies/Adverse Reactions: Allergies Allergy/AdvReac Type Severity Reaction Status Date / Time Sulfa (Sulfonamide Allergy ANAPHYLAXIS Verified 06/28/17 20:29 Antibiotics) - Medications Medications: Current Medications Acetaminophen/Butalbital/Caffeine (Fioricet) 1 tab PO Q4 PRN PRN Reason: Headache Last Admin: 06/29/17 15:10 Dose: 1 tab Albuterol/Ipratropium (Duoneb 3 Mg/0.5 Mg (3 Ml) Ud) 3 ml IH Q2H PRN PRN Reason: Shortness of Breath Aspirin (Aspirin Chewable) 81 mg PO DAILY [facility] Last Admin: 06/30/17 10:18 Dose: 81 mg Diazepam (Valium) 5 mg PO BID [facility] PRN Reason: Protocol Last Admin: 06/30/17 17:47 Dose: 5 mg Diphenhydramine HCl (Benadryl) 25 mg IVP Q4H PRN PRN Reason: Allergy symptoms Last Admin: 07/01/17 08:24 Dose: 25 mg Docusate Sodium (Colace) 100 mg PO BID [facility] Last Admin: 06/30/17 17:44 Dose: 100 mg Famotidine (Pepcid) 40 mg PO HS [facility] Last Admin: 06/30/17 21:05 Dose: 40 mg Folic Acid (Folic Acid) 1 mg PO DAILY [facility] Heparin Sodium (Porcine) (Heparin) 5,000 units SC Q12 [facility] PRN Reason: Protocol Last Admin: 06/30/17 21:01 Dose: 5,000 units Home Med (Home Med) 1 unit PO TID [facility] Last Admin: 06/30/17 17:05 Dose: Not Given Home Med (Home Med) 1 unit IH DAILY [facility] Last Admin: 06/30/17 10:18 Dose: 1 unit Hydromorphone HCl (Dilaudid) 4 mg PO Q4H PRN; Protocol PRN Reason: Pain, severe (8-10) Last Admin: 06/30/17 23:15 Dose: 4 mg Ceftriaxone Sodium (Rocephin 1 Gram Ivpb) 1 gm in 100 mls @ 100 mls/hr IVPB DAILY [facility] PRN Reason: Protocol Last Admin: 06/30/17 10:22 Dose: 100 mls/hr Meclizine HCl (Antivert) 25 mg PO BID [facility] Morphine Sulfate (Morphine Extended Release Tab) 15 mg PO Q12 [facility] Last Admin: 06/30/17 21:02 Dose: 15 mg Mupirocin (Bactroban Ointment) 0 gm TOP BID [facility] Last Admin: 06/30/17 17:43 Dose: 1 appl Propranolol HCl (Inderal) 10 mg PO BID [facility] Last Admin: 06/30/17 17:47 Dose: 10 mg Thiamine HCl (Vitamin B1 Tab) 50 mg PO DAILY [facility] Topiramate (Topamax) 50 mg PO BID [facility] PRN Reason: Protocol Last Admin: 06/30/17 17:47 Dose: 50 mg Verapamil HCl (Calan Tab) 40 mg PO TID [facility] Last Admin: 06/30/17 17:44 Dose: 40 mg Results - Vital Signs Recent Vital Signs: Last Vital Signs Temp 97.8 F 07/01/17 05:00 Pulse 65 07/01/17 05:00 Resp 18 07/01/17 05:00 BP 106/61 07/01/17 05:00 Pulse Ox 99 07/01/17 05:00 - Labs Result Diagrams: 06/29/17 05:45 06/29/17 05:45 Labs: Laboratory Results - last 24 hr 06/30/17 12:00 Free T4 1.44 TSH 3rd Generation 0.63 <Jaki Hoffman - Last Filed: 07/02/17 09:40> History of Present Illness - History of Present Illness History of Present Illness: pt was transferred to TCU, psychiatry consulted again because of the TCU again this verse writer sign off last week pt was found to be not in any psychiatric distress, pt denied thoughts of harming self or others, was interested to be seen by outpatient psychiatrist information about outpatient psychiatrist provided pt was found to be not at imminent danger to self or others. should you have any questions call me back. thank you. Meds - Medications Medications: Current Medications Acetaminophen/Butalbital/Caffeine (Fioricet) 1 tab PO Q4 PRN PRN Reason: Headache Last Admin: 06/29/17 15:10 Dose: 1 tab Albuterol/Ipratropium (Duoneb 3 Mg/0.5 Mg (3 Ml) Ud) 3 ml IH Q2H PRN PRN Reason: Shortness of Breath Aspirin (Aspirin Chewable) 81 mg PO DAILY [facility] Last Admin: 07/01/17 10:47 Dose: 81 mg Diazepam (Valium) 5 mg PO BID [facility] PRN Reason: Protocol Last Admin: 07/01/17 17:19 Dose: 5 mg Diphenhydramine HCl (Benadryl) 25 mg IVP Q4H PRN PRN Reason: Allergy symptoms Last Admin: 07/01/17 20:18 Dose: 25 mg Docusate Sodium (Colace) 100 mg PO BID [facility] Last Admin: 07/01/17 17:17 Dose: 100 mg Famotidine (Pepcid) 40 mg PO HS [facility] Last Admin: 07/01/17 22:03 Dose: 40 mg Folic Acid (Folic Acid) 1 mg PO DAILY [facility] Last Admin: 07/01/17 10:49 Dose: 1 mg Heparin Sodium (Porcine) (Heparin) 5,000 units SC Q12 [facility] PRN Reason: Protocol Last Admin: 07/01/17 22:02 Dose: 5,000 units Home Med (Home Med) 1 unit PO TID [facility] Last Admin: 07/02/17 09:32 Dose: Not Given Home Med (Home Med) 1 unit IH DAILY [facility] Last Admin: 07/01/17 10:50 Dose: 1 unit Hydromorphone HCl (Dilaudid) 4 mg PO Q4H PRN; Protocol PRN Reason: Pain, severe (8-10) Last Admin: 07/02/17 08:09 Dose: 4 mg Meclizine HCl (Antivert) 25 mg PO BID [facility] Last Admin: 07/01/17 17:16 Dose: 25 mg Morphine Sulfate (Morphine Extended Release Tab) 15 mg PO Q12 [facility] Last Admin: 07/01/17 22:03 Dose: 15 mg Mupirocin (Bactroban Ointment) 0 gm TOP BID [facility] Last Admin: 07/01/17 17:16 Dose: 1 appl Polyethylene Glycol (Miralax) 17 gm PO DAILY [facility] Propranolol HCl (Inderal) 10 mg PO BID [facility] Last Admin: 07/01/17 17:18 Dose: 10 mg Thiamine HCl (Vitamin B1 Tab) 50 mg PO DAILY [facility] Last Admin: 07/01/17 10:53 Dose: 50 mg Topiramate (Topamax) 50 mg PO BID [facility] PRN Reason: Protocol Last Admin: 07/01/17 17:18 Dose: 50 mg Verapamil HCl (Calan Tab) 40 mg PO TID [facility] Last Admin: 07/01/17 17:16 Dose: 40 mg Results - Vital Signs Recent Vital Signs: Last Vital Signs Temp 98 F 07/02/17 06:00 Pulse 61 07/02/17 06:00 Resp 18 07/02/17 06:00 BP 110/61 07/02/17 06:00 Pulse Ox 97 07/02/17 06:00 - Labs Result Diagrams: 07/02/17 05:10 07/02/17 05:10 Labs: Laboratory Results - last 24 hr 06/30/17 07/02/17 07/02/17 12:00 05:10 05:10 WBC 5.0 RBC 3.42 L Hgb 11.0 L Hct 31.9 L MCV 93.3 MCH 32.2 MCHC 34.5 RDW 13.7 Plt Count 238 MPV 9.6 Gran % 44.4 L Lymph % (Auto) 43.3 H Quay % (Auto) 7.3 H Eos % (Auto) 4.2 Baso % (Auto) 0.8 Gran # 2.20 Lymph # 2.2 Quay # 0.4 Eos # 0.2 Baso # 0.04 Sodium 137 Potassium 4.7 Chloride 106 Carbon Dioxide 26 Anion Gap 10 BUN 17 Creatinine 1.0 Est GFR ( Amer) > 60 Est GFR (Non-Af Amer) 56 Random Glucose 95 Calcium 9.7 Total Bilirubin 0.4 AST 23 ALT 28 Alkaline Phosphatase 72 Total Protein 6.3 Albumin 3.8 Globulin 2.5 Albumin/Globulin Ratio 1.5 PTH Intact Whole Molec 37
[2017-07-01] MEDS ORDERED: cefTRIAXone 1 gm 1 GM/100 ML BAG IVPB SCH (16:22)
[2017-07-02 06:18] LABS: BASO # 0.04 K/mm3 (0.0-2.0); BASO % 0.8 % (0.0-3.0); EOS # 0.2 (0.0-0.7); EOS % 4.2 % (1.5-5.0); GRAN # 2.2 (1.4-6.5); GRAN % 44.4 % (50.0-68.0); HEMATOCRIT 31.9 % (36.0-48.0); LYMPH # 2.2 (1.2-3.4); LYMPH % 43.3 % (22.0-35.0); MEAN CELL VOLUME 93.3 fl (80.0-105.0); MEAN CORPUSCULAR HEMOGLOBIN 32.2 pg (25.0-35.0); MEAN CORPUSCULAR HGB CONC 34.5 g/dl (31.0-37.0); MEAN PLATELET VOLUME 9.6 fl (7.0-11.0); MONO # 0.4 (0.1-0.6); MONO % 7.3 % (1.0-6.0); RED CELL DISTRIBUTION WIDTH 13.7 % (11.5-14.5)
[2017-07-02 07:16] LABS: ALB/GLOB RATIO 1.5 (1.1-1.8); ALKALINE PHOSPHATASE 72 U/L (38-126); ALT/SGPT 28 U/L (7-56); AST/SGOT 23 U/L (14-36); BILIRUBIN,TOTAL 0.4 mg/dL (0.2-1.3); BLOOD UREA NITROGEN 17 mg/dL (7-21); CALCIUM 9.7 mg/dL (8.4-10.5); CARBON DIOXIDE 26 mmol/L (21-33); CHLORIDE 106 mmol/L (98-107); GFR AFRICAN-AMERICAN > 60; GLUCOSE,RANDOM 95 mg/dL (70-110); POTASSIUM 4.7 mmol/L (3.6-5.0); SODIUM 137 mmol/L (132-148); TOTAL PROTEIN 6.3 g/dL (5.8-8.3)
[2017-07-02] MEDS: CARISOPRODOL 350 MG PO SCH ×3 (09:32→17:08)
[2017-07-02] MEDS: UMECLIDINIUM IH SCH (10:23)
[2017-07-02] MEDS: VILANTEROL IH SCH (10:23)
[2017-07-02] MEDS: POLYETHYLENE GLYCOL 3350 17 GM/Dose PACKET PO SCH (10:23)
[2017-07-02] MEDS: Morphine 15 mg SR Tab PO SCH ×2 (10:37→22:02)
--- NOTE | 2017-07-02 11:08 | CP.PCM.PN ---
Subjective - Date & Time of Evaluation Date of Evaluation: 07/02/17 Time of Evaluation: 07:45 - Subjective Subjective: Patient seen and evaluated at bedside. Patient reports physical therapy yesterday had taken a lot out of her and as a result she has developed muscle spasms in her cervical neck and lower back. She indicates weakness of her left lower extremity as a result of PT. Denies acute numbness or focal deficits of her upper and lower extremities. Denies chest pain, shortness of breath, abdominal discomfort nausea, fever, vomiting, chills. Objective - Vital Signs/Intake and Output Vital Signs (last 24 hours): Temp Pulse Resp BP Pulse Ox 98 F 82 18 127/87 97 07/02/17 06:00 07/02/17 10:22 07/02/17 06:00 07/02/17 10:23 07/02/17 06:00 Intake and Output: 07/02/17 07/02/17 06:59 18:59 Intake Total 420 Balance 420 - Medications Medications: Current Medications Acetaminophen/Butalbital/Caffeine (Fioricet) 1 tab PO Q4 PRN PRN Reason: Headache Last Admin: 06/29/17 15:10 Dose: 1 tab Albuterol/Ipratropium (Duoneb 3 Mg/0.5 Mg (3 Ml) Ud) 3 ml IH Q2H PRN PRN Reason: Shortness of Breath Aspirin (Aspirin Chewable) 81 mg PO DAILY [facility] Last Admin: 07/02/17 10:22 Dose: 81 mg Clopidogrel Bisulfate (Plavix) 75 mg PO DAILY [facility] Last Admin: 07/02/17 10:35 Dose: Not Given Diazepam (Valium) 5 mg PO BID [facility] PRN Reason: Protocol Last Admin: 07/02/17 10:24 Dose: 5 mg Diphenhydramine HCl (Benadryl) 25 mg IVP Q4H PRN PRN Reason: Allergy symptoms Last Admin: 07/01/17 20:18 Dose: 25 mg Docusate Sodium (Colace) 100 mg PO BID [facility] Last Admin: 07/02/17 10:22 Dose: 100 mg Famotidine (Pepcid) 40 mg PO HS [facility] Last Admin: 07/01/17 22:03 Dose: 40 mg Folic Acid (Folic Acid) 1 mg PO DAILY [facility] Last Admin: 07/02/17 10:35 Dose: 1 mg Heparin Sodium (Porcine) (Heparin) 5,000 units SC Q12 [facility] PRN Reason: Protocol Last Admin: 07/02/17 10:23 Dose: 5,000 units Home Med (Home Med) 1 unit PO TID [facility] Last Admin: 07/02/17 09:32 Dose: Not Given Home Med (Home Med) 1 unit IH DAILY [facility] Last Admin: 07/02/17 10:23 Dose: 1 unit Hydromorphone HCl (Dilaudid) 4 mg PO Q4H PRN; Protocol PRN Reason: Pain, severe (8-10) Last Admin: 07/02/17 08:09 Dose: 4 mg Meclizine HCl (Antivert) 25 mg PO BID [facility] Last Admin: 07/02/17 10:22 Dose: 25 mg Morphine Sulfate (Morphine Extended Release Tab) 15 mg PO Q12 [facility] Last Admin: 07/02/17 10:37 Dose: 15 mg Mupirocin (Bactroban Ointment) 0 gm TOP BID [facility] Last Admin: 07/02/17 10:21 Dose: 1 appl Polyethylene Glycol (Miralax) 17 gm PO DAILY [facility] Last Admin: 07/02/17 10:23 Dose: Not Given Propranolol HCl (Inderal) 10 mg PO BID [facility] Last Admin: 07/02/17 10:23 Dose: 10 mg Thiamine HCl (Vitamin B1 Tab) 50 mg PO DAILY [facility] Last Admin: 07/02/17 10:24 Dose: 50 mg Topiramate (Topamax) 50 mg PO BID [facility] PRN Reason: Protocol Last Admin: 07/02/17 10:24 Dose: 50 mg Verapamil HCl (Calan Tab) 40 mg PO TID [facility] Last Admin: 07/02/17 10:22 Dose: 40 mg - Labs Labs: 07/02/17 05:10 07/02/17 05:10 APTT 28.6 Seconds (25.1-36.5) 06/29/17 05:45 - Constitutional Appears: Non-toxic, No Acute Distress - Head Exam Head Exam: ATRAUMATIC, NORMAL INSPECTION, NORMOCEPHALIC - Eye Exam Eye Exam: EOMI, PERRL - Neck Exam Neck Exam: Tenderness (cervical paraspinal tissue tenderness L>R). absent: Full ROM - Respiratory Exam Respiratory Exam: Clear to Ausculation Bilateral, NORMAL BREATHING PATTERN. absent: Rales, Rhonchi, Wheezes - Cardiovascular Exam Cardiovascular Exam: REGULAR RHYTHM, +S1, +S2, Murmur (systolic murmur) - GI/Abdominal Exam GI & Abdominal Exam: Soft, Normal Bowel Sounds. absent: Guarding, Tenderness, Mass - Extremities Exam Extremities Exam: absent: Pedal Edema - Neurological Exam Neurological Exam: Alert, Awake, Oriented x3 Neuro motor strength exam: Left Upper Extremity: 4, Right Upper Extremity: 4, Left Lower Extremity: 4, Right Lower Extremity: 4 Additional comments: unsteadiness on feet, able to take small steps with mild shuffling gait - Psychiatric Exam Psychiatric exam: Normal Affect, Normal Mood - Skin Skin Exam: Dry, Warm. absent: Rash Assessment and Plan (1) Physical deconditioning Status: Acute (2) Cerebral infarction Status: Chronic (3) Depression Status: Chronic (4) Uncontrolled hypertension Status: Chronic - Assessment and Plan (Free Text) Assessment: Patient is a 61 year old female with past medical history of CVAx7 with history of rehab, HTN, migraines, psoriatic arthritis, chronic back pain with cervical and lumbar stenosis, COPD, anxiety and tobacco use who presented with HTN, lower extremity pruritus x 1 week, headache and generalized weakness. Patient was admitted and evaluated for weakness. Patient evaluated by PT to be deconditioned and transferred to TCU for rehabilitation. Plan: Generalized weakness, unsteady gait - Etiology:history of multiple CVAs vs. deconditioning vs. vertigo - CT Head on admission: No acute intracranial hemorrhage, small foci of hypodensity likely old infarcts - MRI Brain: no acute abnormalities - PT/OT in TCU - Patient showing improvement with PT - Continue ASA, carisoprodol - Meclizine bid Somatic Dysfunction of paraspinal muscles - C 2-C7, T1-T4 TART findings L>R - Physical exam today showing weakness in all four extremities and muscle spasm of cervical and thoracic musculature likely secondary to PT - Patient reports episodes in past of spasms with increased physical activity - Cervical, Thoracic, lumbar spinal xray - OMM with soft tissue and myofascial release Hx of CVA x 7 - Etiology: unknown - Neuro Consulted on prior admission - Head CT and Head MRI negative on admission - Asa, plavix - Carotid u/s - Will check outpatient chart for further work up Lower extremity erythema/rash-resolved - Etiology: allergic reaction vs. cellulitis vs. psoriasis - LE doppler negative for DVT b/l - Benadryl 25mg IV PRN - Monitor Hx Depression - Psych consulted, no indication for starting antidepressants - No threat to herself or others, consider outpatient psych - psych signed off Chronic Pain secondary to bulged discs, spinal stenosis - Valium 5mg BID - Morphine 15mg PO BID - Dilaudid Constipation - Colace 100 mg PO BID, start miralax today - Continue to monitor - pt reports BM today HTN - Stable - Continue home meds (Propranolol, Topamax and Verapamil) - Monitor Hx of Migraines - Continue Fioricet DVT ppx: heparin GI ppx: Protonix Case and plan discussed with attending
--- NOTE | 2017-07-02 15:23 | RAD ---
PROCEDURE: Cervical Spine Radiographs. HISTORY: Pain. COMPARISON: None. FINDINGS: BONES: Alignment maintained. No fracture. Dens Intact. DISC SPACES: Disc degeneration at C5-6 and C6-7. SOFT TISSUES: Normal. No prevertebral soft tissue swelling. OTHER FINDINGS: None. IMPRESSION: Disc degeneration at C5-6 and C6-7
--- NOTE | 2017-07-02 15:24 | RAD ---
HISTORY: paraspinal, vertebral tenderness COMPARISON: No prior. FINDINGS: BONES: Alignment maintained. No fracture. DISC SPACES: Normal. SOFT TISSUES: Normal. OTHER FINDINGS: There is scoliosis convex to the right in the upper thoracic spine IMPRESSION: No acute findings
--- NOTE | 2017-07-02 15:25 | RAD ---
PROCEDURE: Radiographs of the Lumbar Spine. HISTORY: PARASPINAL, VERTEBRAL TENDERNESS COMPARISON: No prior. FINDINGS: BONES: Normal alignment. No listhesis. No fracture. DISC SPACES: Unremarkable. OTHER FINDINGS: None. IMPRESSION: Unremarkable radiographs of the lumbar spine.
[2017-07-02] MEDS: DiphenhydrAMINE 50 mg/ml Inj IVP PRN ×2 (15:37→22:02)
--- NOTE | 2017-07-02 18:55 | US ---
PROCEDURE: Bilateral carotid artery duplex ultrasound HISTORY: Carotid stenosis CVA PHYSICIAN(S): Alexis Lane MD. TECHNIQUE: Duplex sonography and color-flow Doppler were used to evaluate the carotid bifurcations and limited segments of the vertebral arteries bilaterally. FINDINGS: There is mild smooth heterogeneous plaque noted at the carotid bifurcations bilaterally. The peak systolic velocity in the proximal right internal carotid artery is 100 cm/sec. This corresponds to a 20 to 39% proximal right ICA stenosis. Normal systolic velocities are noted in the proximal right external carotid artery. There is antegrade flow in the right vertebral artery. The peak systolic velocity in the proximal left internal carotid artery is 93 cm/sec. This corresponds to a 20 to 39% proximal left ICA stenosis. Normal systolic velocities are noted in the proximal left external carotid artery. There is antegrade flow in the left vertebral artery. IMPRESSION: 1. Bilateral 20-39% proximal ICA stenoses. 2. Antegrade flow in both vertebral arteries.
[2017-07-03] MEDS: VILANTEROL IH SCH (09:54)
[2017-07-03] MEDS: UMECLIDINIUM IH SCH (09:54)
[2017-07-03] MEDS: Morphine 15 mg SR Tab PO SCH ×2 (09:57→22:07)
[2017-07-03] MEDS: POLYETHYLENE GLYCOL 3350 17 GM/Dose PACKET PO SCH (09:58)
[2017-07-03] MEDS: CARISOPRODOL 350 MG PO SCH ×3 (10:00→17:49)
[2017-07-03] MEDS: DiphenhydrAMINE 50 mg/ml Inj IVP PRN ×2 (11:06→22:07)
--- NOTE | 2017-07-03 13:19 | CP.PCM.PN ---
Subjective - Date & Time of Evaluation Date of Evaluation: 07/03/17 Time of Evaluation: 09:30 - Subjective Subjective: IM Progress Note for Dr. Davison/Dr. Gutiérrez Patient seen and examined in TCU. Patient resting in chair comfortably. Patient reports improved physical strength from past 24 hours. Patient noted to have refused plavix yesterday. This AM patient reports improved paraspinal tension of her cervicals are improved. Patient denies chest pain, shortness of breath, abdominal pain, numbness, dizziness. Patient to continue to work with PT. Objective - Vital Signs/Intake and Output Vital Signs (last 24 hours): Temp Pulse Resp BP Pulse Ox 98.4 F 72 16 123/87 99 07/03/17 10:00 07/03/17 10:00 07/03/17 10:00 07/03/17 10:00 07/03/17 10:00 - Medications Medications: Current Medications Acetaminophen/Butalbital/Caffeine (Fioricet) 1 tab PO Q4 PRN PRN Reason: Headache Last Admin: 06/29/17 15:10 Dose: 1 tab Albuterol/Ipratropium (Duoneb 3 Mg/0.5 Mg (3 Ml) Ud) 3 ml IH Q2H PRN PRN Reason: Shortness of Breath Aspirin (Aspirin Chewable) 81 mg PO DAILY [facility] Last Admin: 07/03/17 09:52 Dose: 81 mg Clopidogrel Bisulfate (Plavix) 75 mg PO DAILY [facility] Last Admin: 07/03/17 09:55 Dose: 75 mg Diazepam (Valium) 5 mg PO BID [facility] PRN Reason: Protocol Last Admin: 07/03/17 09:54 Dose: 5 mg Diphenhydramine HCl (Benadryl) 25 mg IVP Q4H PRN PRN Reason: Allergy symptoms Last Admin: 07/03/17 11:06 Dose: 25 mg Docusate Sodium (Colace) 100 mg PO BID [facility] Last Admin: 07/03/17 09:53 Dose: 100 mg Famotidine (Pepcid) 40 mg PO HS [facility] Last Admin: 07/02/17 22:03 Dose: 40 mg Folic Acid (Folic Acid) 1 mg PO DAILY [facility] Last Admin: 07/03/17 09:53 Dose: 1 mg Heparin Sodium (Porcine) (Heparin) 5,000 units SC Q12 [facility] PRN Reason: Protocol Last Admin: 07/03/17 09:58 Dose: 5,000 units Home Med (Home Med) 1 unit PO TID [facility] Last Admin: 07/03/17 10:00 Dose: Not Given Home Med (Home Med) 1 unit IH DAILY [facility] Last Admin: 07/03/17 09:54 Dose: 1 unit Hydromorphone HCl (Dilaudid) 4 mg PO Q4H PRN; Protocol PRN Reason: Pain, severe (8-10) Last Admin: 07/03/17 12:54 Dose: 4 mg Meclizine HCl (Antivert) 25 mg PO BID [facility] Last Admin: 07/03/17 09:51 Dose: 25 mg Morphine Sulfate (Morphine Extended Release Tab) 15 mg PO Q12 [facility] Last Admin: 07/03/17 09:57 Dose: 15 mg Mupirocin (Bactroban Ointment) 0 gm TOP BID [facility] Last Admin: 07/03/17 09:55 Dose: 1 appl Polyethylene Glycol (Miralax) 17 gm PO DAILY [facility] Last Admin: 07/03/17 09:58 Dose: Not Given Propranolol HCl (Inderal) 10 mg PO BID [facility] Last Admin: 07/03/17 09:54 Dose: 10 mg Thiamine HCl (Vitamin B1 Tab) 50 mg PO DAILY [facility] Last Admin: 07/03/17 09:55 Dose: 50 mg Topiramate (Topamax) 50 mg PO BID [facility] PRN Reason: Protocol Last Admin: 07/03/17 09:49 Dose: 50 mg Verapamil HCl (Calan Tab) 40 mg PO TID [facility] Last Admin: 07/03/17 09:53 Dose: 40 mg - Labs Labs: 07/02/17 05:10 07/02/17 05:10 APTT 28.6 Seconds (25.1-36.5) 06/29/17 05:45 - Head Exam Head Exam: ATRAUMATIC, NORMAL INSPECTION, NORMOCEPHALIC - Eye Exam Eye Exam: EOMI, PERRL Pupil Exam: PERRL - ENT Exam ENT Exam: Mucous Membranes Moist - Neck Exam Neck Exam: absent: Full ROM (limited ROM, improved in past 24 hours) - Respiratory Exam Respiratory Exam: Clear to Ausculation Bilateral, NORMAL BREATHING PATTERN. absent: Rales, Rhonchi, Wheezes - Cardiovascular Exam Cardiovascular Exam: REGULAR RHYTHM, RRR, +S1, +S2. absent: Murmur - GI/Abdominal Exam GI & Abdominal Exam: Soft, Normal Bowel Sounds. absent: Guarding, Rigid, Tenderness - Extremities Exam Extremities Exam: absent: Pedal Edema Additional comments: left lower extremity rash, signs of healing - Back Exam Back Exam: paraspinal tenderness (cervical, C3-C7, thoracic ) - Neurological Exam Neurological Exam: Alert, Awake, Oriented x3 Neuro motor strength exam: Left Upper Extremity: 5, Right Upper Extremity: 5, Left Lower Extremity: 4, Right Lower Extremity: 4 - Psychiatric Exam Psychiatric exam: Normal Affect, Normal Mood - Skin Skin Exam: Dry, Intact. absent: Rash Assessment and Plan (1) Physical deconditioning Status: Acute (2) Cerebral infarction Status: Chronic (3) Depression Status: Chronic (4) Uncontrolled hypertension Status: Chronic - Assessment and Plan (Free Text) Assessment: Patient is a 61 year old female with past medical history of CVAx7 with history of rehab, HTN, migraines, psoriatic arthritis, chronic back pain with cervical and lumbar stenosis, COPD, anxiety and tobacco use who presented with HTN, lower extremity pruritus x 1 week, headache and generalized weakness. Patient was admitted and evaluated for weakness. Patient evaluated by PT to be deconditioned and transferred to TCU for rehabilitation. Plan: Generalized weakness, unsteady gait - Etiology:history of multiple CVAs vs. deconditioning vs. vertigo - CT Head on admission: No acute intracranial hemorrhage, small foci of hypodensity likely old infarcts - MRI Brain: no acute abnormalities - PT/OT in TCU - Patient showing improvement with PT - Continue, planning for outpatient PT - Continue ASA, carisoprodol - Meclizine bid Somatic Dysfunction of paraspinal muscles - C 2-C7, T1-T4 TART findings L>R - Cervical, Thoracic, lumbar spinal xray - Thoracic and Lumbar: negative - Cervical - C5-C6, C6-C7 disc bulge, likely chronic - OMT with soft tissue and myofascial release Hx of CVA x 7 - Etiology: unknown - Neuro Consulted on prior admission - Head CT and Head MRI negative on admission - Asa, plavix - Carotid u/s showing bilateral proximal ICA stenosis of 20-39% - Will check outpatient chart for further work up Lower extremity erythema/rash-resolved - Etiology: allergic reaction vs. cellulitis vs. psoriasis - LE doppler negative for DVT b/l - Benadryl 25mg IV PRN - Monitor Chronic Pain secondary to bulged discs, spinal stenosis - Valium 5mg BID - Morphine 15mg PO BID - Dilaudid 4mg PO Q4 PRN Constipation - Colace 100 mg PO BID, start miralax today - Continue to monitor HTN - Stable - Continue home meds (Propranolol, Topamax and Verapamil) - Monitor Hx of Migraines - Continue Fioricet Hx Depression - Psych consulted, no indication for starting antidepressants - No threat to herself or others, consider outpatient psych - psych signed off DVT ppx: heparin GI ppx: Protonix Case and plan discussed with attending
[2017-07-04] MEDS: Apap-Butalbital-Caffeine 325-50-40mg Tab PO PRN (02:49)
[2017-07-04 06:07] LABS: HOMOCYSTEINE 11.1 umol/L (<10.4)
[2017-07-04 06:31] LABS: BASO # 0.04 K/mm3 (0.0-2.0); BASO % 0.8 % (0.0-3.0); EOS # 0.2 (0.0-0.7); EOS % 4.6 % (1.5-5.0); GRAN # 2.16 (1.4-6.5); GRAN % 45.6 % (50.0-68.0); HEMATOCRIT 30.3 % (36.0-48.0); LYMPH # 1.9 (1.2-3.4); LYMPH % 40.1 % (22.0-35.0); MEAN CELL VOLUME 93.2 fl (80.0-105.0); MEAN CORPUSCULAR HEMOGLOBIN 32.3 pg (25.0-35.0); MEAN CORPUSCULAR HGB CONC 34.7 g/dl (31.0-37.0); MEAN PLATELET VOLUME 9.5 fl (7.0-11.0); MONO # 0.4 (0.1-0.6); MONO % 8.9 % (1.0-6.0); RED CELL DISTRIBUTION WIDTH 13.5 % (11.5-14.5); WHITE BLOOD COUNT 4.7 10^3/ul (4.5-11.0)
[2017-07-04 07:49] LABS: ALB/GLOB RATIO 1.4 (1.1-1.8); ALKALINE PHOSPHATASE 69 U/L (38-126); ALT/SGPT 22 U/L (7-56); AST/SGOT 23 U/L (14-36); BILIRUBIN,TOTAL 0.4 mg/dL (0.2-1.3); BLOOD UREA NITROGEN 14 mg/dL (7-21); CALCIUM 9.3 mg/dL (8.4-10.5); CARBON DIOXIDE 24 mmol/L (21-33); CHLORIDE 106 mmol/L (98-107); GFR AFRICAN-AMERICAN > 60; GLUCOSE,RANDOM 91 mg/dL (70-110); POTASSIUM 3.8 mmol/L (3.6-5.0); SODIUM 137 mmol/L (132-148); TOTAL PROTEIN 5.9 g/dL (5.8-8.3)
--- NOTE | 2017-07-04 08:49 | CP.PCM.PN ---
Subjective - Date & Time of Evaluation Date of Evaluation: 07/04/17 Time of Evaluation: 07:40 - Subjective Subjective: Patient seen and examined at bedside. Pt reports headache and continued aches and pains associated with her lower back which are chronic in nature. Patient denies chest pain, shortness of breath, abdominal discomfort, n/v/f/c. Indicates continued waxing and waning strength of left lower extremity with day to day PT. Objective - Vital Signs/Intake and Output Vital Signs (last 24 hours): Temp Pulse Resp BP Pulse Ox 98.2 F 61 20 125/68 99 07/04/17 06:00 07/04/17 06:00 07/04/17 06:00 07/04/17 06:00 07/04/17 06:00 - Medications Medications: Current Medications Acetaminophen/Butalbital/Caffeine (Fioricet) 1 tab PO Q4 PRN PRN Reason: Headache Last Admin: 07/04/17 02:49 Dose: 1 tab Albuterol/Ipratropium (Duoneb 3 Mg/0.5 Mg (3 Ml) Ud) 3 ml IH Q2H PRN PRN Reason: Shortness of Breath Aspirin (Aspirin Chewable) 81 mg PO DAILY [facility] Last Admin: 07/03/17 09:52 Dose: 81 mg Clopidogrel Bisulfate (Plavix) 75 mg PO DAILY [facility] Last Admin: 07/03/17 09:55 Dose: 75 mg Diazepam (Valium) 5 mg PO BID [facility] PRN Reason: Protocol Last Admin: 07/03/17 17:55 Dose: 5 mg Diphenhydramine HCl (Benadryl) 25 mg IVP Q4H PRN PRN Reason: Allergy symptoms Last Admin: 07/03/17 22:07 Dose: 25 mg Docusate Sodium (Colace) 100 mg PO BID [facility] Last Admin: 07/03/17 17:52 Dose: 100 mg Famotidine (Pepcid) 40 mg PO HS [facility] Last Admin: 07/03/17 22:10 Dose: 40 mg Folic Acid (Folic Acid) 1 mg PO DAILY [facility] Last Admin: 07/03/17 09:53 Dose: 1 mg Heparin Sodium (Porcine) (Heparin) 5,000 units SC Q12 [facility] PRN Reason: Protocol Last Admin: 07/03/17 22:08 Dose: 5,000 units Home Med (Home Med) 1 unit PO TID [facility] Last Admin: 07/03/17 17:49 Dose: Not Given Home Med (Home Med) 1 unit IH DAILY [facility] Last Admin: 07/03/17 09:54 Dose: 1 unit Hydromorphone HCl (Dilaudid) 4 mg PO Q4H PRN; Protocol PRN Reason: Pain, severe (8-10) Last Admin: 07/04/17 08:40 Dose: 4 mg Meclizine HCl (Antivert) 25 mg PO BID [facility] Last Admin: 07/03/17 17:50 Dose: 25 mg Morphine Sulfate (Morphine Extended Release Tab) 15 mg PO Q12 [facility] Last Admin: 07/03/17 22:07 Dose: 15 mg Mupirocin (Bactroban Ointment) 0 gm TOP BID [facility] Last Admin: 07/03/17 17:50 Dose: 1 appl Polyethylene Glycol (Miralax) 17 gm PO DAILY [facility] Last Admin: 07/03/17 09:58 Dose: Not Given Propranolol HCl (Inderal) 10 mg PO BID [facility] Last Admin: 07/03/17 17:52 Dose: Not Given Thiamine HCl (Vitamin B1 Tab) 50 mg PO DAILY [facility] Last Admin: 07/03/17 09:55 Dose: 50 mg Topiramate (Topamax) 50 mg PO BID [facility] PRN Reason: Protocol Last Admin: 07/03/17 17:49 Dose: 50 mg Verapamil HCl (Calan Tab) 40 mg PO TID [facility] Last Admin: 07/03/17 17:52 Dose: Not Given - Labs Labs: 07/04/17 05:30 07/04/17 05:30 APTT 28.6 Seconds (25.1-36.5) 06/29/17 05:45 - Constitutional Appears: Non-toxic, No Acute Distress - Head Exam Head Exam: ATRAUMATIC, NORMAL INSPECTION, NORMOCEPHALIC - Eye Exam Eye Exam: EOMI, PERRL - ENT Exam ENT Exam: Mucous Membranes Moist - Neck Exam Neck Exam: Tenderness. absent: Full ROM - Respiratory Exam Respiratory Exam: Clear to Ausculation Bilateral, NORMAL BREATHING PATTERN. absent: Rales, Rhonchi, Wheezes - Cardiovascular Exam Cardiovascular Exam: REGULAR RHYTHM, +S1, +S2 - GI/Abdominal Exam GI & Abdominal Exam: Soft, Normal Bowel Sounds. absent: Guarding, Rigid, Tenderness - Extremities Exam Extremities Exam: absent: Joint Swelling, Pedal Edema - Back Exam Back Exam: paraspinal tenderness (cervical, lumbar), tenderness (Lumbar paraspinal musculature ) - Neurological Exam Neurological Exam: Alert, Awake, Normal Gait (small shuffling gait with use of RW), Oriented x3 Neuro motor strength exam: Left Upper Extremity: 5, Right Upper Extremity: 5, Left Lower Extremity: 4, Right Lower Extremity: 4 - Psychiatric Exam Psychiatric exam: Normal Affect, Normal Mood - Skin Skin Exam: Dry, Intact Additional comments: healing scabs and ulcerations of left anterior barrientos Assessment and Plan (1) Physical deconditioning Status: Acute (2) Cerebral infarction Status: Chronic (3) Depression Status: Chronic (4) Uncontrolled hypertension Status: Chronic - Assessment and Plan (Free Text) Assessment: Patient is a 61 year old female with past medical history of CVAx7 with history of rehab, HTN, migraines, psoriatic arthritis, chronic back pain with cervical and lumbar stenosis, COPD, anxiety and tobacco use who presented with HTN, lower extremity pruritus x 1 week, headache and generalized weakness. Patient was admitted and evaluated for weakness. Patient evaluated by PT to be deconditioned and transferred to TCU for rehabilitation. Plan: Generalized weakness, unsteady gait - Etiology:history of multiple CVAs vs. deconditioning vs. vertigo - CT Head on admission: No acute intracranial hemorrhage, small foci of hypodensity likely old infarcts - MRI Brain: no acute abnormalities - PT/OT in TCU - Patient showing improvement with PT - Continue, planning for outpatient PT ongoing - Continue ASA, carisoprodol - Meclizine bid Headache - Hx of migraines, chronic in nature, sometimes associated with change in vision - Fiorcet - ESR, CRP - CHRIS with reflex Somatic Dysfunction of paraspinal muscles - C 2-C7, T1-T4 TART findings L>R - Cervical, Thoracic, lumbar spinal xray - Thoracic and Lumbar: negative - Cervical - C5-C6, C6-C7 disc bulge, likely chronic Hx of CVA x 7 - Etiology: unknown - Neuro Consulted on prior admission - Head CT and Head MRI negative on admission - Asa, plavix - Carotid u/s showing bilateral proximal ICA stenosis of 20-39% - Outpatient records reviewed by medical team - Hypercoaguable workup pending final results Lower extremity erythema/rash-resolved - Etiology: allergic reaction vs. cellulitis vs. psoriasis - LE doppler negative for DVT b/l - Benadryl 25mg IV PRN - Monitor, showing improvement Chronic Pain secondary to bulged discs C5-C6, C6-C7, spinal stenosis - Valium 5mg BID - Morphine 15mg PO BID - Dilaudid 4mg PO Q4 PRN Constipation - Colace 100 mg PO BID, miralax - Continue to monitor HTN - Stable - Continue home meds (Propranolol, Topamax and Verapamil) - Monitor Hx Depression - Psych consulted, no indication for starting antidepressants - No threat to herself or others, consider outpatient psych - psych signed off DVT ppx: SCDs GI ppx: Protonix Patient seen, case and plan discussed and reviewed with attending
[2017-07-04] MEDS: POLYETHYLENE GLYCOL 3350 17 GM/Dose PACKET PO SCH (10:23)
[2017-07-04] MEDS: UMECLIDINIUM IH SCH (10:27)
[2017-07-04] MEDS: VILANTEROL IH SCH (10:27)
[2017-07-04] MEDS: CARISOPRODOL 350 MG PO SCH ×3 (10:28→17:31)
[2017-07-04] MEDS: Morphine 15 mg SR Tab PO SCH ×2 (10:29→21:50)
[2017-07-04 11:31] LABS: CARDIOLIPIN AB (IGA) <11 APL (<=11)
[2017-07-04] MEDS: DiphenhydrAMINE 50 mg/ml Inj IVP PRN (20:43)
[2017-07-05 05:51] VITALS: RESP 16
[2017-07-05] MEDS: Apap-Butalbital-Caffeine 325-50-40mg Tab PO PRN (08:07)
[2017-07-05] MEDS: UMECLIDINIUM IH SCH (10:05)
[2017-07-05] MEDS: VILANTEROL IH SCH (10:05)
[2017-07-05] MEDS: CARISOPRODOL 350 MG PO SCH ×3 (10:06→17:22)
[2017-07-05] MEDS: POLYETHYLENE GLYCOL 3350 17 GM/Dose PACKET PO SCH (10:07)
[2017-07-05] MEDS: Morphine 15 mg SR Tab PO SCH (10:08)
--- NOTE | 2017-07-05 12:32 | CP.PCM.PN ---
Subjective - Date & Time of Evaluation Date of Evaluation: 07/05/17 Time of Evaluation: 09:00 - Subjective Subjective: IM progress note for Dr. Gutiérrez/Dr. Davison service Patient s/e at bedside in TCU. No acute events overnight. Patient sitting in bed upright. Complains of chronic back pain, neck stiffness and left lower extremity weakness from previous CVA. Patient continues to work with PT, showing progression. Able to walk down [address] and back (200ft) with minimal assistance with cane. Patient refusing to take plavix at this time. Patient denies chest pain, shortness of breath, abdominal pain, n/v/f/c. Objective - Vital Signs/Intake and Output Vital Signs (last 24 hours): Temp Pulse Resp BP Pulse Ox 98.5 F 63 16 114/68 98 07/05/17 05:50 07/05/17 10:06 07/05/17 05:50 07/05/17 10:06 07/05/17 05:50 Intake and Output: 07/05/17 07/05/17 06:59 18:59 Intake Total 540 Balance 540 - Medications Medications: Current Medications Acetaminophen/Butalbital/Caffeine (Fioricet) 1 tab PO Q4 PRN PRN Reason: Headache Last Admin: 07/05/17 08:07 Dose: 1 tab Albuterol/Ipratropium (Duoneb 3 Mg/0.5 Mg (3 Ml) Ud) 3 ml IH Q2H PRN PRN Reason: Shortness of Breath Aspirin (Aspirin Chewable) 81 mg PO DAILY [facility] Last Admin: 07/05/17 10:02 Dose: 81 mg Clopidogrel Bisulfate (Plavix) 75 mg PO DAILY [facility] Last Admin: 07/05/17 10:07 Dose: Not Given Diazepam (Valium) 5 mg PO BID [facility] PRN Reason: Protocol Last Admin: 07/05/17 10:07 Dose: 5 mg Diphenhydramine HCl (Benadryl) 25 mg IVP Q4H PRN PRN Reason: Allergy symptoms Last Admin: 07/04/17 20:43 Dose: 25 mg Docusate Sodium (Colace) 100 mg PO BID [facility] Last Admin: 07/05/17 10:04 Dose: 100 mg Famotidine (Pepcid) 40 mg PO HS [facility] Last Admin: 07/04/17 21:51 Dose: 40 mg Folic Acid (Folic Acid) 1 mg PO DAILY [facility] Last Admin: 07/05/17 10:05 Dose: 1 mg Heparin Sodium (Porcine) (Heparin) 5,000 units SC Q12 [facility] PRN Reason: Protocol Last Admin: 07/05/17 10:05 Dose: Not Given Home Med (Home Med) 1 unit PO TID [facility] Last Admin: 07/05/17 10:06 Dose: Not Given Home Med (Home Med) 1 unit IH DAILY [facility] Last Admin: 07/05/17 10:05 Dose: 1 unit Hydromorphone HCl (Dilaudid) 4 mg PO Q4H PRN; Protocol PRN Reason: Pain, severe (8-10) Last Admin: 07/05/17 10:08 Dose: 4 mg Meclizine HCl (Antivert) 25 mg PO BID [facility] Last Admin: 07/05/17 10:02 Dose: 25 mg Mupirocin (Bactroban Ointment) 0 gm TOP BID [facility] Last Admin: 07/05/17 10:03 Dose: 1 appl Polyethylene Glycol (Miralax) 17 gm PO DAILY [facility] Last Admin: 07/05/17 10:07 Dose: Not Given Propranolol HCl (Inderal) 10 mg PO BID [facility] Last Admin: 07/05/17 10:06 Dose: 10 mg Thiamine HCl (Vitamin B1 Tab) 50 mg PO DAILY [facility] Last Admin: 07/05/17 10:08 Dose: 50 mg Topiramate (Topamax) 50 mg PO BID [facility] PRN Reason: Protocol Last Admin: 07/05/17 10:07 Dose: 50 mg Verapamil HCl (Calan Tab) 40 mg PO TID [facility] Last Admin: 07/05/17 10:04 Dose: 40 mg - Labs Labs: 07/04/17 05:30 07/04/17 05:30 APTT 28.6 Seconds (25.1-36.5) 06/29/17 05:45 - Constitutional Appears: Non-toxic, No Acute Distress - Head Exam Head Exam: ATRAUMATIC, NORMAL INSPECTION, NORMOCEPHALIC - Eye Exam Eye Exam: EOMI, PERRL - ENT Exam ENT Exam: Mucous Membranes Moist - Respiratory Exam Respiratory Exam: Clear to Ausculation Bilateral, NORMAL BREATHING PATTERN - Cardiovascular Exam Cardiovascular Exam: REGULAR RHYTHM, +S1, +S2 - GI/Abdominal Exam GI & Abdominal Exam: Soft, Normal Bowel Sounds. absent: Tenderness - Back Exam Back Exam: paraspinal tenderness (cervical and lumbar bilaterally ) - Neurological Exam Neurological Exam: Alert, Awake, Normal Gait, Oriented x3 Neuro motor strength exam: Left Upper Extremity: 5, Right Upper Extremity: 5, Left Lower Extremity: 4, Right Lower Extremity: 5 - Psychiatric Exam Psychiatric exam: Normal Affect, Normal Mood - Skin Skin Exam: Dry, Intact, Warm Additional comments: left anterior lower extremity showing healing scab from previous itching Assessment and Plan (1) Physical deconditioning Status: Acute (2) Cerebral infarction Status: Chronic (3) Depression Status: Chronic (4) Uncontrolled hypertension Status: Chronic - Assessment and Plan (Free Text) Assessment: Patient is a 61 year old female with past medical history of CVAx7 with history of rehab, HTN, migraines, psoriatic arthritis, chronic back pain with cervical and lumbar stenosis, COPD, anxiety and tobacco use who presented with HTN, lower extremity pruritus x 1 week, headache and generalized weakness. Patient was admitted and evaluated for weakness. Patient evaluated by PT to be deconditioned and currently in TCU for physical rehab. Plan: Generalized weakness, unsteady gait - Etiology:history of multiple CVAs vs. deconditioning vs. vertigo - CT Head on admission: No acute intracranial hemorrhage, small foci of hypodensity likely old infarcts - MRI Brain: no acute abnormalities - PT/OT in TCU - Patient showing improvement with PT - Continue, planning for outpatient PT ongoing - Continue ASA, carisoprodol - Meclizine bid - Patient plan to be discharged tomorrow with outpatient services Headache - Hx of migraines, chronic in nature, sometimes associated with change in vision - Fiorcet - ESR and CRP wnl - CHRIS with reflex pending, f/u Somatic Dysfunction of paraspinal muscles - C 2-C7, T1-T4 TART findings L>R - Cervical, Thoracic, lumbar spinal xray - Thoracic and Lumbar: negative - Cervical - C5-C6, C6-C7 disc bulge, likely chronic Hx of CVA x 7 - Etiology: unknown - Neuro Consulted on prior admission - Head CT and Head MRI negative on admission - Asa, plavix - Carotid u/s showing bilateral proximal ICA stenosis of 20-39% - Outpatient records reviewed by medical team - Hypercoaguable workup pending final results - Anti-cardiolipin negative Chronic Pain secondary to bulged discs C5-C6, C6-C7, spinal stenosis - Valium 5mg BID - Morphine 15mg PO BID - Dilaudid 4mg PO Q4 PRN HTN - Stable - Continue home meds (Propranolol, Topamax and Verapamil) - Monitor Hx Depression - Psych consulted, no indication for starting antidepressants - No threat to herself or others, consider outpatient psych - psych signed off DVT ppx: SCDs GI ppx: Protonix Patient seen, case and plan discussed and reviewed with attending
[2017-07-05] MEDS: DiphenhydrAMINE 50 mg/ml Inj IVP PRN (16:31)
[2017-07-06 04:15] LABS: B2 GLYCOPROTEIN I AB(IGA) <9 SAU (<=20); B2 GLYCOPROTEIN I AB(IGG) <9 SGU (<=20); B2 GLYCOPROTEIN I AB(IGM) <9 SMU (<=20); CARDIOLIPIN AB (IGA) <11 APL (<=11)
[2017-07-06 06:47] VITALS: TEMP 98.7; O2SAT 99
[2017-07-06] MEDS: UMECLIDINIUM IH SCH (10:15)
[2017-07-06] MEDS: VILANTEROL IH SCH (10:15)
[2017-07-06] MEDS: CARISOPRODOL 350 MG PO SCH (10:16)
[2017-07-06] MEDS: POLYETHYLENE GLYCOL 3350 17 GM/Dose PACKET PO SCH (10:17)
[2017-07-06 10:23] VITALS: BP 142/99
[2017-07-06 16:44] VITALS: PULSE 99
[2017-07-06 21:58] LABS: PHOSPHATIDYLSERINE AB IGA <20 U/mL (<20); PHOSPHATIDYLSERINE AB IGM <25 U/mL (<25)
== END 2017-07-06 14:56 | disposition home or self-care (01) | DRG 946 ==
LOC: TRCU 18:50
PROVIDERS: ADMIT Internal Medicine; ATTEND Internal Medicine
PROC: F07Z9FZ Gait Training/Functional Ambulation Treatment using Assistive, Adaptive, Supportive or Protective Equipment (ICD-10-PCS; principal; 2017-06-29)
PROC: F08Z4FZ Home Management Treatment using Assistive, Adaptive, Supportive or Protective Equipment (ICD-10-PCS; 2017-06-29)
DX: R53.1 Weakness (principal); I69.349 Monoplegia of lower limb following cerebral infarction affecting unspecified side; L40.50 Arthropathic psoriasis, unspecified; F32.9 Major depressive disorder, single episode, unspecified; G89.29 Other chronic pain; M48.02 Spinal stenosis, cervical region; M48.061 Spinal stenosis, lumbar region without neurogenic claudication; I10 Essential (primary) hypertension; J44.9 Chronic obstructive pulmonary disease, unspecified; L29.9 Pruritus, unspecified; G43.909 Migraine, unspecified, not intractable, without status migrainosus; F41.9 Anxiety disorder, unspecified; K59.00 Constipation, unspecified; Z90.710 Acquired absence of both cervix and uterus; Z87.891 Personal history of nicotine dependence